=== PATIENT | female | born 1955 | race Caucasian/White ===

== ENCOUNTER → 2016-11-12 | Outpatient (CLI) | payer MEDICARE ==
[2016-11-12 10:39] LABS: HEMATOCRIT 34.2 % (36.0-47.0); HEMOGLOBIN 11.7 g/dL (12.0-15.5); HGB HCT DIFFERENCE 0.9; MEAN CORPUSCULAR HGB CONC 34.3 g/dL (32.0-36.0); MEAN CORPUSCULAR VOLUME 85 fl (80-97); RED BLOOD COUNT 4.04 10^6/uL (3.72-5.28); RED CELL DISTRIBUTION WIDTH 13.2 % (11.5-14.0)
[2016-11-12 11:09] LABS: ALBUMIN 3.9 g/dL (3.5-5.0); BILIRUBIN,TOTAL 0.5 mg/dL (0.2-1.3); TOTAL PROTEIN 7.2 g/dL (6.3-8.2)
== END ==
LOC: OD 09:53
PROVIDERS: ATTEND Physician Assistant Surgical
DX: K50.90 Crohn's disease, unspecified, without complications (principal); Z79.899 Other long term (current) drug therapy
CPT/HCPCS: 36415; 80076; 85027; 86140

== ENCOUNTER → 2016-11-24 | Outpatient (CLI) | payer MEDICARE, OTHER | LOC: RAD 13:13 | DX: G20 Parkinson's disease (principal) | CPT/HCPCS: 70551 ==

== ENCOUNTER → 2016-11-26 | Outpatient (CLI) | payer MEDICARE | LOC: WI 11:26 | PROVIDERS: ATTEND Internal Medicine Gastroenterology | DX: Z78.0 Asymptomatic menopausal state (principal) | CPT/HCPCS: 77080 ==

== ENCOUNTER → 2017-02-01 | Outpatient (CLI) | payer MEDICARE ==
[2017-02-01 14:11] LABS: FOLATE 9.4 ng/mL (>2.76)
== END ==
LOC: OD 12:06
PROVIDERS: ATTEND Specialist
DX: R25.1 Tremor, unspecified (principal)
CPT/HCPCS: 36415; 82607; 82746

== ENCOUNTER 2017-03-14 18:16 | Inpatient (IN) | payer MEDICARE ==
[2017-03-14] MEDS ORDERED: MAGNESIUM SULFATE/D5W 100 ML IV PRN (19:16)
[2017-03-14] MEDS ORDERED: METHYLPREDNISOLONE INJ 125 MG/2 ML SDV IV ONE (19:17)
[2017-03-14] MEDS ORDERED: IPRATROPIUM/ALBUTEROL 0.5-2.5 MG/3 ML AMPUL NEB ONE (19:17)
--- NOTE | 2017-03-14 19:19 | ER Document Report ---
ED Respiratory Problem - General Chief Complaint: Shortness Of Breath Stated Complaint: DIFFICULTY BREATHING Time Seen by Provider: 03/14/17 19:09 Notes: Patient is a 61-year-old female comes emergency department by EMS by referral from urgent care for chief complaint of difficulty breathing. Patient was given to reading treatments and route. Patient states she has been worsening for the past 2-3 days, reports persistent congested cough, wheezing, shortness of breath. She denies vomiting, fever, specific chest pain. She states she stopped smoking 15 years ago. No COPD or asthma diagnosis although this is the third time this year she has had these symptoms. She has an albuterol inhaler at home. Past medical history otherwise includes Crohn's, hypothyroidism, GERD , fibromyalgia. TRAVEL OUTSIDE OF THE [place] IN LAST 30 DAYS: No - Related Data Allergies/Adverse Reactions: morphine [Morphine] Allergy (Severe, Verified 03/15/17 00:49) N&V, itching, resp distress ciprofloxacin [From Cipro] Allergy (Intermediate, Verified 12/13/15 14:07) N&V,rash ciprofloxacin HCl [From Cipro] Allergy (Intermediate, Verified 12/13/15 14:07) N&V, rash oxycodone [From Percocet] Adverse Reaction (Verified 03/15/17 00:49) GI distress Past Medical History - General Information source: Patient - Social History Smoking Status: Former Smoker Frequency of alcohol use: None Drug Abuse: None Lives with: Family Family History: Reviewed & Not Pertinent Patient has suicidal ideation: No Patient has homicidal ideation: No - Past Medical History Cardiac Medical History: Reports: Hx Hypercholesterolemia - Triglycerides Denies: Hx Pulmonary Embolism Pulmonary Medical History: Reports: Hx Asthma, Hx Bronchitis, Hx Pneumonia Denies: Hx COPD, Hx Respiratory Failure, Hx Sleep Apnea, Hx Tuberculosis Endocrine Medical History: Reports: Hx Hypothyroidism. Denies: Hx Graves' Disease, Hx Hyperthyroidism Renal/ Medical History: Reports: Hx Ovarian Cysts - 2006, [facility]. Denies: Hx End Stage Renal Disease, Hx Kidney Stones, Hx Peritoneal Dialysis, Hx Pelvic Inflammatory Disease Malignancy Medical History: Reports: Hx Cervical Cancer - 1992, [facility]. Denies: Hx Breast Cancer, Hx Leukemia, Hx Lung Cancer, Hx Ovarian Cancer GI Medical History: Reports: Hx Crohn's Disease, Hx Gastroesophageal Reflux Disease. Denies: Hx Hiatal Hernia, Hx Irritable Bowel, Hx Liver Failure, Hx Ulcer Musculoskeltal Medical History: Reports Hx Arthritis, Reports Hx Fibromyalgia, Denies Hx Muscular Dystrophy Psychiatric Medical History: Reports: Hx Anxiety, Hx Depression Denies: Hx Bipolar Disorder, Hx Post Traumatic Stress Disorder, Hx Schizophrenia Traumatic Medical History: Reports: Hx Fractures Infectious Medical History: Denies: Hx HIV Past Surgical History: Reports: Hx Gynecologic Surgery - cervical, Hx Hysterectomy, Hx Orthopedic Surgery - bilateral tkr, spinal, Hx Tonsillectomy - at age 13 yrs old, Hx Tubal Ligation. Denies: Hx Appendectomy, Hx Bowel Surgery , Hx Section, Hx Cholecystectomy, Hx Colostomy, Hx Coronary Artery Bypass Graft, Hx Gastric Bypass Surgery, Hx Herniorrhaphy, Hx Mastectomy, Hx Pacemaker - Immunizations Hx Diphtheria, Pertussis, Tetanus Vaccination: Yes Review of Systems - Review of Systems Constitutional: No symptoms reported EENT: No symptoms reported Cardiovascular: No symptoms reported Respiratory: See HPI Gastrointestinal: No symptoms reported Genitourinary: No symptoms reported Female Genitourinary: No symptoms reported Musculoskeletal: No symptoms reported Skin: No symptoms reported Hematologic/Lymphatic: No symptoms reported Neurological/Psychological: No symptoms reported Physical Exam - Vital signs Vitals: Temp Pulse Resp BP Pulse Ox 98.1 F 92 16 122/71 98 03/14/17 18:52 03/14/17 18:52 03/14/17 18:52 03/14/17 18:52 03/14/17 18:52 Interpretation: Normal - General General appearance: Anxious In distress: Mild - patient with tachypnea on exam, but does not appear to be in pain - HEENT Head: Normocephalic, Atraumatic Eyes: Normal Pupils: PERRL - Respiratory Respiratory status: Respiratory distress - mild, Labored, Tachypnea Breath sounds: Decreased air movement, Wheezing - Cardiovascular Rhythm: Regular. No: Tachycardia Heart sounds: Normal auscultation, S1 appreciated, S2 appreciated Murmur: No - Abdominal Inspection: Normal Distension: No distension Bowel sounds: Normal Tenderness: Nontender. No: Tender, Guarding Organomegaly: No organomegaly - Back Back: Normal, Nontender. No: Vertebra tenderness - Extremities General upper extremity: Normal inspection, Nontender, Normal color, Normal ROM , Normal temperature General lower extremity: Normal inspection, Nontender, Normal color, Normal ROM , Normal temperature, Normal weight bearing. No: Cl[place]'s sign - Neurological Neuro grossly intact: Yes Cognition: Normal Orientation: AAOx4 [place] Coma Scale Eye Opening: Spontaneous [place] Coma Scale Verbal: Oriented [place] Coma Scale Motor: Obeys Commands Chaya Coma Scale Total: 15 Speech: Normal Motor strength normal: LUE, RUE, LLE, RLE Sensory: Normal - Psychological Associated symptoms: Normal affect, Normal mood - Skin Skin Temperature: Warm Skin Moisture: Dry Skin Color: Normal Course - Re-evaluation Re-evalutation: On initial exam patient with mild respiratory distress, labored breathing, tachypnea, decreased breath sounds with wheezing throughout. Plan unremarkable, chemistry, CBC, workup generally unremarkable. Consistent with COPD exacerbation and undiagnosed patient, upper respiratory infection. After breathing treatments, patient has received 3 in total, magnesium, Solu- Medrol, IV fluids patient significantly improved but still has wheezing and a mild tachypnea. Still has very slightly labored breathing. She is tolerating nasal cannula well and oxygenating well on nasal cannula. Patient does not appear to be ready to go home, she states she is nervous to even walk to attempt to test for going home. Discussed with Dr. Grimaldo. Discussed with Dr. Stevens, patient will be admitted to the hospital. - Vital Signs Vital signs: Temp Pulse Resp BP Pulse Ox 97.5 F 93 18 146/68 H 98 03/15/17 03:55 03/15/17 03:55 03/15/17 03:55 03/15/17 03:55 03/15/17 03:55 - Laboratory Result Diagrams: 03/14/17 19:27 03/14/17 19:27 Laboratory results interpreted by me: 03/14/17 03/14/17 03/14/17 19:27 19:27 19:27 Hgb 11.8 L Hct 35.5 L Eosinophils % 16.8 H Absolute Eosinophils 1.6 H Magnesium 2.4 H TSH 0.03 L Discharge - Discharge Clinical Impression: Wheezing, Shortness of breath, COPD exacerbation Condition: Stable Disposition: ADMITTED OBSERVATION Admitting Provider: Hospitalist Unit Admitted: Telemetry
[2017-03-14 19:41] LABS: ABSOLUTE EOSINOPHILS # (AUTO) 1.6 10^3/uL (0.0-0.6); ABSOLUTE LYMPHOCYTES (AUTO) 2.5 10^3/uL (0.5-4.7); ABSOLUTE MONOCYTES (AUTO) 0.6 10^3/uL (0.1-1.4); ABSOLUTE NEUT (AUTO) 4.9 10^3/uL (1.7-8.2); BASOPHILS % (AUTO) 0.3 % (0-2); EOSINOPHILS % (AUTO) 16.8 % (0-6); HEMATOCRIT 35.5 % (36.0-47.0); HEMOGLOBIN 11.8 g/dL (12.0-15.5); HGB HCT DIFFERENCE -0.1; LYMPHOCYTES % (AUTO) 25.6 % (13-45); MEAN CORPUSCULAR HEMOGLOBIN 28.4 pg (27.0-33.4); MEAN CORPUSCULAR HGB CONC 33.2 g/dL (32.0-36.0); MEAN CORPUSCULAR VOLUME 86 fl (80-97); MONOCYTES % (AUTO) 6.5 % (3-13); RED BLOOD COUNT 4.15 10^6/uL (3.72-5.28); RED CELL DISTRIBUTION WIDTH 13.7 % (11.5-14.0); SEGMENTED NEUTROPHILS % (AUTO) 50.8 % (42-78); WHITE BLOOD COUNT 9.6 10^3/uL (4.0-10.5)
[2017-03-14 19:55] LABS: ALANINE AMINOTRANSFERASE 18 U/L (9-52); ALKALINE PHOSPHATASE 81 U/L (38-126); ANION GAP 12 (5-19); ASPARTATE AMINO TRANSFERASE 19 U/L (14-36); BILIRUBIN,DIRECT 0.3 mg/dL (0.0-0.4); BILIRUBIN,TOTAL 0.6 mg/dL (0.2-1.3); BLOOD UREA NITROGEN 13 mg/dL (7-20); CARBON DIOXIDE 24 mmol/L (22-30); CHLORIDE 107 mmol/L (98-107); CREATINE KINASE 103 U/L (30-135); CREATININE RESULT 0.66 mg/dL (0.52-1.25); GLUCOSE 102 mg/dL (75-110); POTASSIUM 3.9 mmol/L (3.6-5.0); SODIUM 143.2 mmol/L (137-145); TOTAL PROTEIN 7.7 g/dL (6.3-8.2)
[2017-03-14 20:07] LABS: CREATINE KINASE MB 0.78 ng/mL (<4.55)
[2017-03-14 20:08] LABS: TROPONIN I < 0.012 ng/mL
[2017-03-14] MEDS ORDERED: NORMAL SALINE 1000 ML 1,000 ML IV ONE (20:49)
--- NOTE | 2017-03-14 20:54 | RADIOLOGY REPORT (SQ) ---
EXAM DESCRIPTION: CHEST SINGLE VIEW COMPLETED DATE/TIME: 03/14/2017 8:03 pm REASON FOR STUDY: shortness of breath COMPARISON: 12/13/2015 EXAM PARAMETERS: NUMBER OF VIEWS: One view. TECHNIQUE: Single frontal radiographic view of the chest acquired. RADIATION DOSE: NA LIMITATIONS: None. FINDINGS: LUNGS AND PLEURA: No opacities, masses or pneumothorax. No pleural effusion. MEDIASTINUM AND HILAR STRUCTURES: No masses. Contour normal. HEART AND VASCULAR STRUCTURES: Heart normal in size. Normal vasculature. BONES: No acute findings. HARDWARE: EKG leads overlie the chest. OTHER: No other significant finding. IMPRESSION: NO ACUTE RADIOGRAPHIC FINDING IN THE CHEST. TECHNICAL DOCUMENTATION: JOB ID: [id number]
[2017-03-14 22:13] LABS: VENOUS BLOOD BASE EXCESS -1.9 mmol/L; VENOUS BLOOD HCO3 22.9 mmol/L (20-32); VENOUS BLOOD PCO2 39.5 mmHg (35-63); VENOUS BLOOD PH 7.38 (7.30-7.42)
[2017-03-15] MEDS ORDERED: GUAIFENESIN SYRP 200 MG/10 ML UDC PO PRN (00:33)
[2017-03-15 00:35] LABS: ADD ON TESTING BLD IN LAB ACKNOWLEDGE
[2017-03-15] MEDS ORDERED: PROMETHAZINE HCL 25 MG TABLET PO PRN (00:37)
--- NOTE | 2017-03-15 00:59 | PDOC H&P ---
History of Present Illness Admission Date/PCP: 03/14/17 22:51 COLLEEN HERNANDEZ PA-C Patient complains of: difficulty breathing History of Present Illness: EKEGAN FELICIANO is a 61 year old female, former smoker, with no tobacco use 15 years, and with no specific pulmonary diagnosis, including asthma, COPD , emphysema, or sleep apnea, but with pulmonology consult to be scheduled in the near future who presents to the emergency room for evaluation of a 2-3 day history of progressive respiratory distress, in the form of occasional congested cough, wheezing, and just generalized shortness of breath, in particular with much of any exertion. Patient has been discussed with emergency room nurse practitioner who evaluated the patient. She has had no fever or chills, nausea vomiting, diarrhea or dysuria. Took a 10 day course of amoxicillin 3 weeks ago for respiratory problems. Intermittent right sided pressure-like chest discomfort over the last several days, increasing with deep breathing and certain movements. Discomfort is worse when she is most short of breath. No underlying cardiac disease, including hypertension, congestive heart failure, myocardial infarction, pulmonary embolus, or DVT. No chest discomfort at present. Has had neither flu or pneumonia vaccinations. still smokes, but only 3-4 cigarettes a day. Daughter, who recently got out of senior living, apparently smokes quite a bit. Laboratory results are listed in [employer] and are reviewed. X-ray summary results are listed below, with full report(s) reviewed. . EKG reviewed. Social history/personal habits: . 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 Allergies/adverse reactions are listed in [employer] and are reviewed. Home medications initially autopopulated into [employer] may not accurately reflect patient's true medications, dosages, and/or frequencies. computer systems technician to reconcile medications. Unfortunately, patient not certain of all medications/dosages/frequencies. REVIEW OF SYSTEMS: Constitutional: No fever or chills. Eyes: Wears glasses ENT: No swallowing problems or complaints. Partial hearing loss. Pulmonary: See history and present illness. Cardiovascular: See history and present illness. Gastrointestinal: No current complaints, including nausea or vomiting. Skin: No current complaints, including rashes. Hematologic: Denies easy bruising. Neurologic: See history and present illness. From her description, likely has sciatica involving her left lower extremity. Musculoskeletal: Chronic back discomfort. Psychiatric: Anxiety and depression; denies suicidal or homicidal ideation Endocrine: No current complaints, including polyuria. Genitourinary: No current complaints, including dysuria. PHYSICAL EXAMINATION: 5 feet 3 inches tall. 88.5 kg. BMI 34.5 kg/m. Blood pressure 130/73. Pulse 97 and regular. 95% saturation on room air. Respirations are 26, with patient making occasional minor use of her accessory respiratory muscles. Temperature 98.1. Slightly obese otherwise well-developed female who appears a bit older than her stated age. Appears not to feel very well. Somewhat anxious, although no gil agitation. Pleasant awake alert and cooperative. is present at her side; patient approves. Female emergency room nurse Rosa is present. Skin is warm and dry. No grossly obvious evidence of rash in areas of skin examined. No subcutaneous nodules palpated. ENT: Hearing grossly normal to normal conversation. Tongue midline on protrusion pink and slightly tacky. Eyes: No scleral icterus. Pupils equal and reactive to light at 4 mm. [place] conjunctivae. Neck is supple and nontender to gentle active range of motion and palpation. Midline trachea. No palpable thyroid nodule mass enlargement or tenderness. Lymphatic: No palpable cervical or clavicular nodes. Neck and lymphatic exams limited by patient body habitus. Psychiatric: Reasonable insight into acute and chronic medical issues. Oriented to time location and why here. Lungs: Auscultation reveals clear and equal breath sounds bilaterally. Occasional brief minor use of accessory respiratory muscles. Cardiovascular: Heart regular rate and rhythm, without gallop murmur or rub. No carotid or abdominal aortic bruits. No ankle or pedal edema. Faintly palpable dorsalis pedis pulses. Abdomen:soft somewhat obese nontender with positive bowel sounds. Unable to adequately evaluate abdomen for masses or organomegaly due to body habitus. Extremities: Feet are warm and dry. No calf tenderness to compression. No grossly obvious visual evidence of calf swelling. Gentle manipulation of lower extremities fails to reveal any obvious evidence of injury or instability to knees hips or ankles. Neurologic: Moves upper extremities grossly normally. Patellar reflexes absent. Absent Babinski. Light touch is intact at feet. Dorsiflexion and plantarflexion of feet 5 / 5 and symmetric. Past Medical History Cardiac Medical History: Reports: Hyperlipidema Denies: Congestive Heart Failure, DVT, Myocardial Infarction, Hypertension, Pulmonary Embolism Pulmonary Medical History: Reports: Bronchitis, Pneumonia Denies: Asthma, Chronic Obstructive Pulmonary Disease (COPD), Respiratory Failure, Sleep Apnea, Tuberculosis EENT Medical History: Reports: Eyes - Glasses, Ears - Partial hearing loss Denies: Throat Neurological Medical History: Reports: Other - Probable sciatica involving her left lower extremity Denies: Hemorrhagic CVA, Ischemic CVA, Seizures Endocrine Medical History: Reports: Hypothyroidism Denies: Diabetes Mellitus Type 1, Diabetes Mellitus Type 2, Hyperthyroidism Renal/ Medical History: Reports: Other - Probable prolapsed bladder Malignancy Medical History: Reports: Cervical Cancer - 1992 Denies: Breast Cancer, Leukemia, Lung Cancer, Ovarian Cancer GI Medical History: Reports: Crohn's Disease, Gastroesophageal Reflux Disease Denies: Cirrhosis, Hepatitis, Hiatal Hernia, Peptic Ulcer Disease Musculoskeltal Medical History: Reports: Arthritis Skin Medical History: Reports: None Psychiatric Medical History: Reports: Depression, General Anxiety Disorder Denies: Alcohol Dependency, Substance Abuse, Tobacco Dependency Hematology: Reports: Anemia - iron deficiency Denies: Hemophilia, Sickle Cell Disease Infectious Medical History: Denies: Clostridium Difficile, Hepatitis B, Hepatitis C, Methicillin- Resistant Staph Aureus Past Surgical History Past Surgical History: Reports: Hysterectomy, Orthopedic Surgery - bilateral tkr , spinal, Tonsillectomy - at age 13 yrs old, Tubal Ligation Social History Information Source: Patient, Emergency Med Personnel, [facility] Records Lives with: Spouse/Significant other Smoking Status: Former Smoker Frequency of Alcohol Use: None Hx Recreational Drug Use: No Drugs: None Hx Prescription Drug Abuse: No - Advance Directive Resuscitation Status: Full Code Surrogate healthcare decision maker:: Family History Family History: Reviewed & Not Pertinent Parental Family History Reviewed: Yes - Father of cerebral hemorrhage. Mother alive with dementia Children Family History Reviewed: Yes - Son with COPD Sibling(s) Family History Reviewed.: Yes Medication/Allergy Home Medications: Alprazolam [Xanax 0.25 mg Tablet] 0.25 mg PO Q8HP PRN 03/15/17 Fluticasone Propionate [Flovent Diskus 100 mcg] 1 puff IH BID 03/15/17 Gabapentin [Neurontin] 800 mg PO Q6 03/15/17 Levothyroxine Sodium [Synthroid 0.025 mg Tablet] 0.025 mg PO DAILY 03/15/17 Omeprazole 40 mg PO DAILY 03/15/17 Oxybutynin Chloride [Ditropan 5 mg Tablet] 5 mg PO Q8 03/15/17 Sertraline HCl [Zoloft 50 mg Tablet] 50 mg PO DAILY 03/15/17 Simvastatin [Zocor 20 mg Tablet] 20 mg PO QPM 03/15/17 Albuterol Sulfate [Proair HFA] 1 - 2 puff IH Q4 PRN #1 inhaler 03/18/17 Azithromycin [Zithromax 250 mg Tablet] 250 mg PO QHS #5 tablet 03/18/17 Guaifenesin [Mucinex Sr 600 mg Tablet.] 1,200 mg PO Q12 tablet.sa 03/18/17 Allergies/Adverse Reactions: morphine [Morphine] Allergy (Severe, Verified 03/15/17 00:49) N&V, itching, resp distress ciprofloxacin [From Cipro] Allergy (Intermediate, Verified 12/13/15 14:07) N&V,rash oxycodone [From Percocet] Adverse Reaction (Verified 03/15/17 00:49) GI distress Physical Exam Vital Signs: Temp Pulse Resp BP Pulse Ox 98.1 F 97 13 130/73 H 96 03/14/17 18:52 03/15/17 00:34 03/14/17 23:06 03/14/17 23:06 03/14/17 23:06 Results Impressions: Chest X-Ray 03/14/17 19:15 IMPRESSION: NO ACUTE RADIOGRAPHIC FINDING IN THE CHEST. Assessment & Plan - Diagnosis (1) Respiratory distress Is this a current diagnosis for this admission?: YesPlan: Although no formal diagnosis of COPD, suspect this is exacerbation of same. Will treat as for same. Incentive spirometry twice a day. Scheduled DuoNeb's. As needed albuterol nebs. Prednisone. Prevacid for gastritis prophylaxis. Antibiotics will consist of Zithromax and Rocephin. I strongly encouraged patient to notify staff should patient feel that breathing is worsening. Patient is a full code. I have strongly encouraged patient not to get out of bed without notifying staff , to avoid a fall with injury. Knee high SCDs for DVT prophylaxis, along with subcutaneous Lovenox. Impression and plans were discussed with patient and , both of whom concur. Time spent in evaluation and management of patient: 66 minutes. (2) Immunosuppressed status Is this a current diagnosis for this admission?: YesPlan: We will hold Crohn's medication for now. (3) HLD (hyperlipidemia) Qualifiers: Hyperlipidemia type: unspecified Qualified Code(s): E78.5 - Hyperlipidemia, unspecified Is this a current diagnosis for this admission?: YesPlan: Resume home medications as appropriate once these have been determined and reviewed. (4) DVT prophylaxis Is this a current diagnosis for this admission?: Yes (5) Hypothyroid Qualifiers: Hypothyroidism type: unspecified Qualified Code(s): E03.9 - Hypothyroidism, unspecified Is this a current diagnosis for this admission?: YesPlan: TSH pending. Resume home medications as appropriate once these have been determined and reviewed. (6) Cough Is this a current diagnosis for this admission?: Yes (7) Chest pain Qualifiers: Chest pain type: other chest pain Qualified Code(s): R07.89 - Other chest pain; R07.8 - Other chest pain Is this a current diagnosis for this admission?: YesPlan: Suspect this is simply secondary to her underlying respiratory issues, but will proceed with chest pain protocol. Serial troponin . Repeat EKG. lipid panel. (8) Wheezing Is this a current diagnosis for this admission?: Yes (9) Shortness of breath Is this a current diagnosis for this admission?: Yes
[2017-03-15 01:13] LABS: MAGNESIUM 2.4 mg/dL (1.6-2.3)
[2017-03-15] MEDS ORDERED: AZITHROMYCIN 250 MG TABLET PO ONE (01:30)
[2017-03-15] MEDS ORDERED: CEFTRIAXONE 1 GM/D5W RTU 1 GM/50 ML RTUPB IV ONE (02:00)
[2017-03-15] MEDS ORDERED: CEFAZOLIN 1 GM/D5W RTU 1 GM/50 ML RTUPB IV ONE (03:13)
[2017-03-15 03:17] LABS: APPEARANCE,URINE CLEAR; BILIRUBIN,URINE NEGATIVE (NEGATIVE); GLUCOSE, URINE 150 mg/dL (NEGATIVE); KETONES,URINE NEGATIVE (NEGATIVE); LEUKOCYTE ESTERASE,URINE NEGATIVE (NEGATIVE); NITRITE,URINE NEGATIVE (NEGATIVE); PROTEIN,URINE NEGATIVE (NEGATIVE); URINE SPECIFIC GRAVITY 1.016; UROBILINOGEN,URINE NEGATIVE mg/dL (<2.0)
[2017-03-15] MEDS: ACETAMINOPHEN 325 MG TABLET PO PRN ×2 (03:23→20:33)
[2017-03-15] MEDS: LANSOPRAZOLE 30 MG TAB.RAP.DR PO SCH (06:05)
[2017-03-15] MEDS: ALBUTEROL SULFATE 0.083% NEB 2.5 MG/3 ML AMPUL NEB PRN ×2 (06:26→18:27)
[2017-03-15 08:04] LABS: CHOLESTEROL 189.92 mg/dL (0-200); Direct HDL 47 mg/dL (>40); TRIGLYCERIDES 86 mg/dL (<150)
[2017-03-15 08:15] LABS: DIRECT LDL 120 mg/dL (<100)
[2017-03-15] MEDS: IPRATROPIUM/ALBUTEROL 0.5-2.5 MG/3 ML AMPUL NEB SCH ×3 (09:38→19:53)
[2017-03-15] MEDS: ENOXAPARIN SODIUM INJ 40 MG/0.4 ML DISP.SYRIN SUBCUT SCH (09:57)
[2017-03-15] MEDS: CEFTRIAXONE 1 GM/D5W RTU 1 GM/50 ML RTUPB IV SCH (09:57)
[2017-03-15] MEDS: PREDNISONE 20 MG TABLET PO SCH (09:57)
--- NOTE | 2017-03-15 10:18 | EKG REPORT ---
SEVERITY:- NORMAL ECG - SINUS RHYTHM : Confirmed by: Darryl Chanel MD 15-Mar-2017 10:18:03
--- NOTE | 2017-03-15 10:18 | EKG REPORT ---
SEVERITY:- NORMAL ECG - SINUS RHYTHM : Confirmed by: Darryl Chanel MD 15-Mar-2017 10:17:54
[2017-03-15] MEDS ORDERED: ALPRAZOLAM 0.25 MG TABLET PO PRN (13:05)
--- NOTE | 2017-03-15 13:14 | PDOC PROGRESS REPORT ---
Subjective Progress Note for:: 03/15/17 Subjective:: Patient is seen on morning rounds. Laura is resting comfortably in bed at the present time. She is off oxygen presently. She states her breathing feels improved since she came in but her chest is still feeling "tight.." and lungs are ".. burning" She denies any dyspnea or chest pain. She denies any nausea, vomiting or abdominal pain Physical Exam Vital Signs: Temp Pulse Resp BP Pulse Ox 97.8 F 88 16 145/78 H 94 03/15/17 07:34 03/15/17 09:38 03/15/17 09:38 03/15/17 07:34 03/15/17 09:38 Intake & Output 03/14/17 03/15/17 03/16/17 06:59 06:59 06:59 Intake Total 250 Output Total 200 Balance 50 Weight 82.9 kg General appearance: PRESENT: no acute distress, obese, well-developed, well- nourished Head exam: PRESENT: atraumatic, normocephalic Eye exam: PRESENT: conjunctiva pink, EOMI, PERRLA. ABSENT: scleral icterus Ear exam: PRESENT: normal external ear exam Mouth exam: PRESENT: moist, tongue midline Neck exam: ABSENT: carotid bruit, JVD, lymphadenopathy, thyromegaly Respiratory exam: PRESENT: decreased breath sounds, rhonchi - bilaterally, symmetrical, unlabored. ABSENT: rales, wheezes Cardiovascular exam: PRESENT: RRR. ABSENT: diastolic murmur, rubs, systolic murmur Pulses: PRESENT: normal dorsalis pedis pul Vascular exam: PRESENT: normal capillary refill GI/Abdominal exam: PRESENT: ascites Rectal exam: PRESENT: deferred Extremities exam: PRESENT: calf tenderness Neurological exam: PRESENT: alert, awake, oriented to person, oriented to place , oriented to time, oriented to situation, CN II-XII grossly intact. ABSENT: motor sensory deficit Psychiatric exam: PRESENT: appropriate affect, normal mood. ABSENT: homicidal ideation, suicidal ideation Skin exam: PRESENT: dry, intact, warm. ABSENT: cyanosis, rash Results Laboratory Results: 03/15/17 03/15/17 02:55 07:38 Triglycerides 86 Cholesterol 189.92 LDL Cholesterol Direct 120 H VLDL Cholesterol 17.0 HDL Cholesterol 47 Urine Color YELLOW Urine Appearance CLEAR Urine pH 5.0 Ur Specific [place] 1.016 Urine Protein NEGATIVE Urine Glucose (UA) 150 H Urine Ketones NEGATIVE Urine Blood NEGATIVE Urine Nitrite NEGATIVE Ur Leukocyte Esterase NEGATIVE Urine WBC (Auto) 1 Urine RBC (Auto) 0 03/15/17 03/15/17 01:24 07:38 Troponin I < 0.012 < 0.012 Impressions: Chest X-Ray 03/14/17 19:15 IMPRESSION: NO ACUTE RADIOGRAPHIC FINDING IN THE CHEST. Assessment & Plan - Diagnosis (1) COPD exacerbation Is this a current diagnosis for this admission?: YesPlan: Continue nebulizers, antibiotics and steroids (2) Cough Is this a current diagnosis for this admission?: YesPlan: Improving with current treatment (3) DVT prophylaxis Is this a current diagnosis for this admission?: YesPlan: Lovenox (4) SOB (shortness of breath) Is this a current diagnosis for this admission?: Yes (5) Wheezing Is this a current diagnosis for this admission?: YesPlan: Resolved with current treatment (6) Hypothyroidism Qualifiers: Hypothyroidism type: acquired Qualified Code(s): E03.9 - Hypothyroidism, unspecified Is this a current diagnosis for this admission?: YesPlan: Patient is now hyperthyroid. She is been on cytomel and levothyroxine will hold both and recheck - Time Time Spent with patient: 25-34 minutes Critical Time spent with patient: 15-24 minutes Medications reviewed and adjusted accordingly: Yes Anticipated discharge: Home with Homehealth
[2017-03-15] MEDS: OXYBUTYNIN CHLORIDE 5 MG TABLET PO SCH ×2 (15:19→21:47)
[2017-03-15] MEDS: CARBIDOPA/LEVODOPA 25-100 MG TABLET PO SCH (15:19)
[2017-03-15] MEDS: SIMVASTATIN 10 MG TABLET PO SCH (17:15)
[2017-03-15] MEDS: GABAPENTIN 400 MG CAPSULE PO SCH ×2 (17:16→23:12)
[2017-03-15] MEDS: AZITHROMYCIN 250 MG TABLET PO SCH (21:47)
[2017-03-16] MEDS: LANSOPRAZOLE 30 MG TAB.RAP.DR PO SCH ×2 (05:12→10:40)
[2017-03-16] MEDS: OXYBUTYNIN CHLORIDE 5 MG TABLET PO SCH ×3 (05:12→22:40)
[2017-03-16] MEDS: GABAPENTIN 400 MG CAPSULE PO SCH ×3 (05:12→18:45)
[2017-03-16] MEDS: ALBUTEROL SULFATE 0.083% NEB 2.5 MG/3 ML AMPUL NEB PRN ×2 (05:29→10:54)
[2017-03-16 07:07] LABS: FREE T3 2.69 pg/mL (2.77-5.27)
[2017-03-16 07:20] LABS: THYROID STIMULATING HORMONE 0.05 uIU/mL (0.47-4.68)
[2017-03-16] MEDS: CARBIDOPA/LEVODOPA 25-100 MG TABLET PO SCH ×3 (08:14→16:56)
[2017-03-16] MEDS: IPRATROPIUM/ALBUTEROL 0.5-2.5 MG/3 ML AMPUL NEB SCH ×3 (08:55→20:24)
[2017-03-16] MEDS ORDERED: ACETYLCYSTEINE 20% SOLN 800 MG/4 ML VIAL.NEB NEB PRN (10:30)
[2017-03-16] MEDS: ENOXAPARIN SODIUM INJ 40 MG/0.4 ML DISP.SYRIN SUBCUT SCH (10:35)
[2017-03-16] MEDS: GUAIFENESIN 600 MG TABLET.SA PO SCH ×2 (10:38→22:40)
[2017-03-16] MEDS: PREDNISONE 20 MG TABLET PO SCH (10:39)
[2017-03-16] MEDS: SERTRALINE HCL 50 MG TABLET PO SCH (10:40)
[2017-03-16] MEDS: ALPRAZOLAM 0.5 MG TABLET PO SCH ×2 (10:40→22:39)
[2017-03-16] MEDS: CEFTRIAXONE 1 GM/D5W RTU 1 GM/50 ML RTUPB IV SCH (10:41)
--- NOTE | 2017-03-16 11:27 | PDOC PROGRESS REPORT ---
Subjective Progress Note for:: 03/16/17 Subjective:: Patient is seen on morning rounds. Laura is resting comfortably in bed at the present time. She is off oxygen presently. She states her breathing feels improved since she came in but her chest is still feeling "tight.." and lungs are ".. burning" She denies any dyspnea or chest pain. She denies any nausea, vomiting or abdominal pain Physical Exam Vital Signs: Temp Pulse Resp BP Pulse Ox 98.1 F 62 16 150/71 H 96 03/16/17 07:31 03/16/17 10:53 03/16/17 10:53 03/16/17 07:31 03/16/17 10:53 Intake & Output 03/15/17 03/16/17 03/17/17 06:59 06:59 06:59 Intake Total 250 1076 Output Total 200 1000 Balance 50 76 Weight 82.9 kg 83.5 kg General appearance: PRESENT: no acute distress, obese, well-developed, well- nourished Head exam: PRESENT: atraumatic, normocephalic Eye exam: PRESENT: conjunctiva pink, EOMI, PERRLA. ABSENT: scleral icterus Ear exam: PRESENT: normal external ear exam Mouth exam: PRESENT: moist, tongue midline Neck exam: ABSENT: carotid bruit, JVD, lymphadenopathy, thyromegaly Respiratory exam: PRESENT: rhonchi, symmetrical, unlabored - bilaterally. ABSENT: rales, wheezes Cardiovascular exam: PRESENT: RRR. ABSENT: diastolic murmur, rubs, systolic murmur Pulses: PRESENT: normal dorsalis pedis pul Vascular exam: PRESENT: normal capillary refill. ABSENT: pallor, other GI/Abdominal exam: PRESENT: normal bowel sounds, soft. ABSENT: distended, guarding, mass, organolmegaly, rebound, tenderness Rectal exam: PRESENT: deferred Extremities exam: PRESENT: full ROM. ABSENT: calf tenderness, clubbing, pedal edema Neurological exam: PRESENT: alert, awake, oriented to person, oriented to place , oriented to time, oriented to situation, CN II-XII grossly intact. ABSENT: motor sensory deficit Psychiatric exam: PRESENT: agitated Skin exam: PRESENT: dry, intact, warm. ABSENT: cyanosis, rash Results Laboratory Results: 03/16/17 04:56 TSH 0.05 L Free T4 0.48 L Free T3 pg/mL 2.69 L 03/15/17 03/15/17 01:24 07:38 Troponin I < 0.012 < 0.012 Impressions: Chest X-Ray 03/14/17 19:15 IMPRESSION: NO ACUTE RADIOGRAPHIC FINDING IN THE CHEST. Assessment & Plan - Diagnosis (1) COPD exacerbation Is this a current diagnosis for this admission?: YesPlan: Continue nebulizers, antibiotics and steroids. Will add mucomyst nebulizers and flutter valve to assist with mucous expectoration (2) Cough Is this a current diagnosis for this admission?: YesPlan: Improving with current treatment (3) Wheezing Is this a current diagnosis for this admission?: Yes (4) SOB (shortness of breath) Is this a current diagnosis for this admission?: YesPlan: As above in number 1. Improving (5) Hypothyroidism Qualifiers: Hypothyroidism type: acquired Qualified Code(s): E03.9 - Hypothyroidism, unspecified Is this a current diagnosis for this admission?: YesPlan: Patient is now hyperthyroid. She is been on cytomel and levothyroxine will hold both and recheck (6) DVT prophylaxis Is this a current diagnosis for this admission?: YesPlan: Lovenox - Time Time Spent with patient: 25-34 minutes Critical Time spent with patient: 15-24 minutes Medications reviewed and adjusted accordingly: Yes Anticipated discharge: Home Within: within 24 hours
[2017-03-16] MEDS: SIMVASTATIN 10 MG TABLET PO SCH (18:46)
[2017-03-16] MEDS: ACETYLCYSTEINE 20% SOLN 800 MG/4 ML VIAL.NEB NEB SCH (20:24)
[2017-03-16] MEDS: AZITHROMYCIN 250 MG TABLET PO SCH (22:40)
[2017-03-17] MEDS: GABAPENTIN 400 MG CAPSULE PO SCH ×5 (00:56→23:36)
[2017-03-17] MEDS: OXYBUTYNIN CHLORIDE 5 MG TABLET PO SCH ×3 (05:52→22:53)
[2017-03-17] MEDS: LANSOPRAZOLE 30 MG TAB.RAP.DR PO SCH ×2 (05:52→09:43)
[2017-03-17] MEDS: IPRATROPIUM/ALBUTEROL 0.5-2.5 MG/3 ML AMPUL NEB SCH ×3 (08:23→20:22)
[2017-03-17] MEDS: ACETYLCYSTEINE 20% SOLN 800 MG/4 ML VIAL.NEB NEB SCH ×2 (08:23→20:22)
[2017-03-17] MEDS: CARBIDOPA/LEVODOPA 25-100 MG TABLET PO SCH ×3 (08:49→15:24)
[2017-03-17] MEDS: CEFTRIAXONE 1 GM/D5W RTU 1 GM/50 ML RTUPB IV SCH (09:43)
[2017-03-17] MEDS: ALPRAZOLAM 0.5 MG TABLET PO SCH ×2 (09:43→22:53)
[2017-03-17] MEDS: GUAIFENESIN 600 MG TABLET.SA PO SCH ×2 (09:43→22:53)
[2017-03-17] MEDS: PREDNISONE 20 MG TABLET PO SCH (09:43)
[2017-03-17] MEDS: ENOXAPARIN SODIUM INJ 40 MG/0.4 ML DISP.SYRIN SUBCUT SCH (09:43)
[2017-03-17] MEDS: SERTRALINE HCL 50 MG TABLET PO SCH (09:43)
--- NOTE | 2017-03-17 11:11 | PDOC PROGRESS REPORT ---
Subjective Progress Note for:: 03/17/17 Subjective:: Patient is seen on morning rounds. She is resting comfortably in bed at the present time. She continues to have a congested cough She states her breathing feels improved since she came in but her chest is still feeling "tight.." and lungs are ".. burning" She denies any dyspnea at rest or chest pain. She denies any nausea, vomiting or abdominal pain. Remaining review of systems are negative Physical Exam Vital Signs: Temp Pulse Resp BP Pulse Ox 97.6 F 64 16 153/89 H 96 03/17/17 08:12 03/17/17 08:12 03/17/17 08:12 03/17/17 08:12 03/17/17 08:12 Intake & Output 03/16/17 03/17/17 03/18/17 06:59 06:59 06:59 Intake Total 746 Output Total 800 Balance -54 General appearance: PRESENT: no acute distress, obese, well-developed, well- nourished Head exam: PRESENT: atraumatic, normocephalic Eye exam: PRESENT: conjunctiva pink, EOMI, PERRLA. ABSENT: scleral icterus Ear exam: PRESENT: normal external ear exam Mouth exam: PRESENT: moist, tongue midline Neck exam: ABSENT: carotid bruit, JVD, lymphadenopathy, thyromegaly Respiratory exam: PRESENT: rhonchi, symmetrical, unlabored. ABSENT: rales, wheezes Cardiovascular exam: PRESENT: RRR. ABSENT: diastolic murmur, rubs, systolic murmur Pulses: PRESENT: normal dorsalis pedis pul Vascular exam: PRESENT: normal capillary refill GI/Abdominal exam: PRESENT: normal bowel sounds, soft. ABSENT: distended, guarding, mass, organolmegaly, rebound, tenderness Rectal exam: PRESENT: deferred Extremities exam: PRESENT: full ROM. ABSENT: calf tenderness, clubbing, pedal edema Musculoskeletal exam: PRESENT: ambulatory, full ROM, normal inspection Neurological exam: PRESENT: alert, awake, oriented to person, oriented to place , oriented to time, oriented to situation, CN II-XII grossly intact. ABSENT: motor sensory deficit Psychiatric exam: PRESENT: appropriate affect, normal mood. ABSENT: homicidal ideation, suicidal ideation Skin exam: PRESENT: dry, intact, warm. ABSENT: cyanosis, rash Results Impressions: Chest X-Ray 03/14/17 19:15 IMPRESSION: NO ACUTE RADIOGRAPHIC FINDING IN THE CHEST. Assessment & Plan - Diagnosis (1) COPD exacerbation Is this a current diagnosis for this admission?: YesPlan: Continue nebulizers, antibiotics and steroids. Will add mucomyst nebulizers and flutter valve to assist with mucous expectoration. She is saturating better off of oxygen today. Continues to be very congested with difficulty raising secretions (2) Cough Is this a current diagnosis for this admission?: YesPlan: Improving with current treatment (3) Wheezing Is this a current diagnosis for this admission?: YesPlan: Resolved with current treatment (4) SOB (shortness of breath) Is this a current diagnosis for this admission?: YesPlan: As above in number 1. Improving (5) Hypothyroidism Qualifiers: Hypothyroidism type: acquired Qualified Code(s): E03.9 - Hypothyroidism, unspecified Is this a current diagnosis for this admission?: YesPlan: Patient is now hyperthyroid. She is been on cytomel and levothyroxine will hold both and recheck (6) DVT prophylaxis Is this a current diagnosis for this admission?: YesPlan: Lovenox - Time Time Spent with patient: 25-34 minutes Critical Time spent with patient: 15-24 minutes Medications reviewed and adjusted accordingly: Yes Anticipated discharge: Home Within: within 24 hours
[2017-03-17] MEDS: SIMVASTATIN 10 MG TABLET PO SCH (17:25)
[2017-03-17] MEDS: AZITHROMYCIN 250 MG TABLET PO SCH (22:53)
[2017-03-17] MEDS: FLUTICASONE PROPIONATE HFA 110 MCG/PUFF 12 GM MDI IH SCH (22:53)
[2017-03-18] MEDS: LANSOPRAZOLE 30 MG TAB.RAP.DR PO SCH (05:56)
[2017-03-18] MEDS: GABAPENTIN 400 MG CAPSULE PO SCH ×2 (05:56→11:29)
[2017-03-18] MEDS: OXYBUTYNIN CHLORIDE 5 MG TABLET PO SCH (05:56)
[2017-03-18] MEDS: ACETYLCYSTEINE 20% SOLN 800 MG/4 ML VIAL.NEB NEB SCH (07:37)
[2017-03-18] MEDS: IPRATROPIUM/ALBUTEROL 0.5-2.5 MG/3 ML AMPUL NEB SCH (07:37)
[2017-03-18] MEDS: CARBIDOPA/LEVODOPA 25-100 MG TABLET PO SCH ×2 (07:48→11:29)
[2017-03-18] MEDS: GUAIFENESIN 600 MG TABLET.SA PO SCH (09:41)
[2017-03-18] MEDS: PREDNISONE 20 MG TABLET PO SCH (09:41)
[2017-03-18] MEDS: ALPRAZOLAM 0.5 MG TABLET PO SCH (09:42)
[2017-03-18] MEDS: SERTRALINE HCL 50 MG TABLET PO SCH (09:42)
[2017-03-18] MEDS: FLUTICASONE PROPIONATE HFA 110 MCG/PUFF 12 GM MDI IH SCH (09:43)
[2017-03-18] MEDS: ENOXAPARIN SODIUM INJ 40 MG/0.4 ML DISP.SYRIN SUBCUT SCH (09:44)
[2017-03-18 11:40] VITALS: BP 137/66
--- NOTE | 2017-03-18 14:33 | PDOC DISCHARGE SUMMARY ---
General - Admit/Disc Date/PCP Admission Date/Primary Care Provider: 03/16/17 14:48 COLLEEN HERNANDEZ PA-C Discharge Date: 03/18/17 - Discharge Diagnosis (1) COPD exacerbation Is this a current diagnosis for this admission?: YesSummary: Patient was with IV antibiotics, steroids and nebulizer treatments. She began to improve after the initial 48 hours. Her wheezing and dyspnea abated. Today they have resolved she is now on room air. Her oxygen saturation 96%. She continues to have productive cough however this is improving. We will continue 5 more days of oral antibiotics and steroid taper. (2) Cough Is this a current diagnosis for this admission?: YesSummary: Continue Mucinex and prednisone taper. (3) Wheezing Is this a current diagnosis for this admission?: Yes (4) SOB (shortness of breath) Is this a current diagnosis for this admission?: YesSummary: Resolved (5) Hypothyroidism Is this a current diagnosis for this admission?: YesSummary: We will restart patient's Levoxyl and hold Cytomel (6) DVT prophylaxis Is this a current diagnosis for this admission?: Yes - Additional Information Resuscitation Status: Full Code Discharge Activity: Activity As Tolerated, Balance Activity w/Rest Home Medications: Alprazolam [Xanax 0.25 mg Tablet] 0.25 mg PO Q8HP PRN 03/15/17 Carbidopa/Levodopa [Sinemet 25-100 mg Tablet] 1 tab PO AC 03/15/17 Fluticasone Propionate [Flovent Diskus 100 mcg] 1 puff IH BID 03/15/17 Gabapentin [Neurontin] 800 mg PO Q6 03/15/17 Levothyroxine Sodium [Synthroid 0.025 mg Tablet] 0.025 mg PO DAILY 03/15/17 Omeprazole 40 mg PO DAILY 03/15/17 Oxybutynin Chloride [Ditropan 5 mg Tablet] 5 mg PO Q8 03/15/17 Sertraline HCl [Zoloft 50 mg Tablet] 50 mg PO DAILY 03/15/17 Simvastatin [Zocor 20 mg Tablet] 20 mg PO QPM 03/15/17 Albuterol Sulfate [Proair HFA] 1 - 2 puff IH Q4 PRN #1 inhaler 03/18/17 Azithromycin [Zithromax 250 mg Tablet] 250 mg PO QHS #5 tablet 03/18/17 Guaifenesin [Mucinex Sr 600 mg Tablet.sa] 1,200 mg PO Q12 tablet.sa 03/18/17 History of Present Illness Patient complains of: Shortness of breath and cough History of Present Illness: KEEGAN FELICIANO is a 61 year old female, former smoker, with no tobacco use 15 years, and with no specific pulmonary diagnosis, including asthma, COPD , emphysema, or sleep apnea, but with pulmonology consult to be scheduled in the near future who presents to the emergency room for evaluation of a 2-3 day history of progressive respiratory distress, in the form of occasional congested cough, wheezing, and just generalized shortness of breath, in particular with much of any exertion. Patient has been discussed with emergency room nurse practitioner who evaluated the patient. She has had no fever or chills, nausea vomiting, diarrhea or dysuria. Took a 10 day course of amoxicillin 3 weeks ago for respiratory problems. Intermittent right sided pressure-like chest discomfort over the last several days, increasing with deep breathing and certain movements. Discomfort is worse when she is most short of breath. No underlying cardiac disease, including hypertension, congestive heart failure, myocardial infarction, pulmonary embolus, or DVT. No chest discomfort at present. Has had neither flu or pneumonia vaccinations. still smokes, but only 3-4 cigarettes a day. Daughter, who recently got out of [facility], apparently smokes quite a bit. Hospital Course Hospital Course: She was started on IV steroids, IV antibiotics and nebulizer treatments. Patient was admitted to the telemetry unit. She had a harsh productive cough with intermittent wheezing. Began to improve over the next 48 hours.. We were able to wean her oxygen to room air. Today she is saturating well at 96% on room air. She continues to have productive cough however her dyspnea has resolved. Physical Exam Vital Signs: Temp Pulse Resp BP Pulse Ox 98.1 F 87 20 137/66 H 98 03/18/17 11:37 03/18/17 11:37 03/18/17 11:37 03/18/17 11:37 03/18/17 11:37 Intake & Output 03/17/17 03/18/17 03/19/17 06:59 06:59 06:59 Intake Total 746 1609 Output Total 800 2200 Balance -54 -591 Weight 83.5 kg General appearance: PRESENT: no acute distress, obese, well-developed, well- nourished Head exam: PRESENT: atraumatic, normocephalic Eye exam: PRESENT: conjunctiva pink, EOMI, PERRLA. ABSENT: scleral icterus Ear exam: PRESENT: normal external ear exam Mouth exam: PRESENT: moist, tongue midline Neck exam: ABSENT: carotid bruit, JVD, lymphadenopathy, thyromegaly Respiratory exam: PRESENT: rhonchi - bilaterally, symmetrical, unlabored Cardiovascular exam: PRESENT: RRR. ABSENT: diastolic murmur, rubs, systolic murmur Pulses: PRESENT: normal dorsalis pedis pul Vascular exam: PRESENT: normal capillary refill GI/Abdominal exam: PRESENT: normal bowel sounds, soft. ABSENT: distended, guarding, mass, organolmegaly, rebound, tenderness Extremities exam: PRESENT: full ROM. ABSENT: calf tenderness, clubbing, pedal edema Musculoskeletal exam: PRESENT: ambulatory, full ROM Neurological exam: PRESENT: alert, awake, oriented to person, oriented to place , oriented to time, oriented to situation, CN II-XII grossly intact. ABSENT: motor sensory deficit Psychiatric exam: PRESENT: appropriate affect, normal mood. ABSENT: homicidal ideation, suicidal ideation Skin exam: PRESENT: dry, intact, warm. ABSENT: cyanosis, rash Results Impressions: Chest X-Ray 03/14/17 19:15 IMPRESSION: NO ACUTE RADIOGRAPHIC FINDING IN THE CHEST. Qualifiers PATEINT BEING DISCHARGED WITH ANY OF THE FOLLOWING DIAGNOSIS?: No Plan Discharge Plan: Home with family Time Spent: Less than 30 Minutes
== END 2017-03-18 11:58 | disposition home or self-care (01) | DRG 191 ==
LOC: ER 18:16 → EH 22:51 → UNDOADMOB 22:51 → EH 23:40 → 4S 03-15 00:07 → OBSVTOIN 03-16 14:48
PROVIDERS: ADMIT Family Medicine; ATTEND Family Medicine
PROC: 3E0F73Z Introduction of Anti-inflammatory into Respiratory Tract, Via Natural or Artificial Opening (ICD-10-PCS; principal; 2017-03-16)
DX: J44.1 Chronic obstructive pulmonary disease with (acute) exacerbation (principal); K50.90 Crohn's disease, unspecified, without complications; E78.5 Hyperlipidemia, unspecified; E03.9 Hypothyroidism, unspecified; K21.9 Gastro-esophageal reflux disease without esophagitis; M79.7 Fibromyalgia; J45.909 Unspecified asthma, uncomplicated; Z88.6 Allergy status to analgesic agent; Z88.1 Allergy status to other antibiotic agents; Z85.41 Personal history of malignant neoplasm of cervix uteri; Z90.710 Acquired absence of both cervix and uterus; Z96.653 Presence of artificial knee joint, bilateral; Z90.49 Acquired absence of other specified parts of digestive tract; Z79.51 Long term (current) use of inhaled steroids; Z79.899 Other long term (current) drug therapy; Z87.891 Personal history of nicotine dependence; Z77.22 Contact with and (suspected) exposure to environmental tobacco smoke (acute) (chronic); Z92.25 Personal history of immunosuppression therapy
CPT/HCPCS: 36415; 71010; 80053; 80061; 81001; 82550; 82553; 82803; 83735; 83880; 84439; 84443; 84481; 84484; 85025; 87040; 93005; 93010; 94640; 94799; 96365; 96375; 99285; G0378; J0690; J0696; J1650; J2930; J3475; J3490; J7030; J7512; J7620

== ENCOUNTER → 2017-07-23 | Outpatient (CLI) | payer MEDICARE ==
--- NOTE | 2017-07-23 10:42 | RADIOLOGY REPORT (SQ) ---
EXAM DESCRIPTION: CT CHEST WITHOUT COMPLETED DATE/TIME: 07/23/2017 10:12 am REASON FOR STUDY: CHRONIC COUGH R05 COUGH COMPARISON: March. TECHNIQUE: CT scan performed of the chest without intravenous contrast. Images reviewed with lung, soft tissue and bone windows. Reconstructed coronal and sagittal MPR images reviewed. All images st ored on PACS. All CT scanners at this facility use dose modulation, iterative reconstruction, and/or weight based d osing when appropriate to reduce radiation dose to as low as reasonably achievable (ALARA). [facility]: Dose Right [facility]: CareDose [facility]: Dose Right [facility]: Teradose 4D [facility]: Smart [employer] RADIATION DOSE: Up-to-date CT equipment and radiation dose reduction techniques were employed. CTDIv ol: 14.3 mGy. DLP: 552 mGy-cm. mGy. LIMITATIONS: No technical limitations. FINDINGS: LUNGS AND PLEURA: No masses, infiltrates, pneumothorax. No pleural effusions, calcificati ons. HILAR AND MEDIASTINAL STRUCTURES: No identified masses or abnormal nodes. No obvious aneurysm. HEART AND VASCULAR STRUCTURES: No aneurysm. No pericardial effusion. UPPER ABDOMEN: No significant findings. Limited exam. THYROID AND OTHER SOFT TISSUES: No masses. No adenopathy. BONES: No significant finding. HARDWARE: None in the chest. OTHER: No other significant findings. IMPRESSION: NO SIGNIFICANT FINDING ON NON-CONTRASTED CHEST CT. TECHNICAL DOCUMENTATION: JOB ID: [id number] Quality ID # [id number]: Final reports with documentation of one or more dose reduction techniques (e.g., Au tomated exposure control, adjustment of the mA and/or kV according to patient size, use of iterative reconstruction technique) 2010 [employer]- All Rights Reserved
== END ==
LOC: RAD 09:55
PROVIDERS: ATTEND Internal Medicine Pulmonary Disease
DX: R05 Cough (principal)
CPT/HCPCS: 71250

== ENCOUNTER → 2017-07-28 | Outpatient (CLI) | payer MEDICARE ==
--- NOTE | 2017-07-28 11:29 | ST Modified Barium Swallow ---
Recommendation - Recommendations Recommendations: Functional swallow skills seen, no further intervention indicated. Continue to follow with GI for reflux symptoms. Medical Diagnoses - Medical Diagnoses Medical Diagnosis Description & ICD-10 Code(s): dysphagia, R13.10 Other Medical Diagnoses/Co-Morbidities: per patient report: COPD, asthma, reflux , emphasyma, chronic bronchitis, spinal surgery approximately 10 years post for cervical spinal fusion ST Modified Barium Swallow - General Date: 07/28/17 Risks/Precautions: None Reason for Referral: globus sensation - History History obtained from: Patient -: Medical Medications: Per patient report: spiriva, cymbacort, alprazalom, carbidopa- levodopa, gabapentin, omeprazole, oxybutynin, phentermine, sertraline, simvastatin, ventolin Allergies: patient reports allergy to morphine and opiods - Functional Status Prior Functional Status: INDEPENDENT: feeding - independent Current Functional Limitations: feeding - no diet modifications - Subjective Patient/caregiver goal(s): safe swallow Cognitive-Linguistic Function: WNL Speech Intelligibility: WNL Current Nutritional Means: PO Current PO diet: Regular Current symptoms: c/o Globus sensation Pain: Patient reports, 2/5 - hip pain - Objective Assessment: Upright, Left Lateral - Food Trials Used Food trials used: Thin liquids, Pureed, Regular The patient: Was Able to Self Feed - Oral-Motor Skills Dentition: Full - Assessment Oral prep: Normal Labial closure: Adequate Leakage: None Mastication: Adequate Lingual Movement: Normal Oral stage: Normal for this Procedure - Pharyngeal Stage Initiation of Pharyngeal Stage Reflex: Normal Decreased laryngeal elevation: No Reduced Velopharyngeal Closure: no Reduced pressure generation: No reduced tongue-based retraction: No Pre-swallow pooling in valleculae: None Pre-Swallow pooling in pyriforms: None Reduced Thyro-Hyoid approximation: No Reduced epiglottic excursion: No Reduced pharyngeal peristalsis/contraction: Yes - mild Multiple Swallows with: Cleared w/ Dry Swallow Post-swallow residulas vallecular: None Post-Swallow residuals in pyriforms: Mild - on solid texture - Fall Risk Assessment Medications/Conditions that increase fall risks include: Antidepressants, sedatives, anti-arrhythmic, diuretic, benzodiazipenes, neuroleptics. BP regulation problems, cardiac problems, balance or gait deficits, neurological problems. Is patient considered at risk for falls: no Fall Risk Actions Taken: No action needed - Behavioral Observations During evaluation process patient: was pleasant, was cooperative, provided medical history Mental Status: Alert & Oriented X3 - Treatment / Educational Needs: Treatment/Education Needs: Treatment consisted of patient education on the role of the Speech Pathologist. Patient's plan of care and golas were communicated as well as scheduling and attendance policies. Recommendations for initial home program were shared. Patient demonstrated understanding and verbalized agreement. - Impression/Summary Laryngeal Penetration: No Tracheal Aspiration: no Patient presents with: Normal swallow at eval Risk of Aspiration: Minimal Risk of nutritional compromise: None Evaluation and Findings: Presents with functional swallow skills. Mild pyriform residue seen with hector cracker trials, cleared easily with second swallow. - Recommendations Solid diet recommendations: Regular Liquid Diet Modification: Thin Dysphagia therapy with ASSISTANT MANAGER AIRSIDE OPERATIONS: no Recommended techniques: Fully Upright During Meal, Dry Swallow After Bite Information, Precautions and Recommendations: Patient (Written), Patient (Verbal ) - Time Total Time: 20 - Plan of Care Strategies to optimize patient understanding include:: ongoing assessment of educational needs, implementation of educational strategies, and re-education. - - -: Thank you for the opportunity to work with this patient and his/her family. Should you have any questions about this patient's plan or progress, I can be reached at [phone]. Charge G Code? - - -: Yes ST F.L. Impairment Category - Rationale Based On Rationale Based On: Func. Asses. Tool Results - Swallowing Current G8996: CI 1-19% Impaired Goal G8997: CI 1-19% Impaired Discharge G8998: CI 1-19% Impaired
--- NOTE | 2017-08-01 11:13 | RADIOLOGY REPORT (SQ) ---
EXAM DESCRIPTION: COOKIE SWALLOW COMPLETED DATE/TIME: 07/28/2017 8:25 am REASON FOR STUDY: DYSPHAGIA (R13.10) R13.10 DYSPHAGIA, UNSPECIFIED FOOD IN PHARYNX CAUSING OTHER IN JURY, SEQUELA T17.228 S COMPARISON: None. TECHNIQUE: Videofluoroscopic swallowing examination was performed in conjunction with speech patholo gy. Videofluoroscopic imaging was obtained and reviewed and these are the findings: RADIATION DOSE: Total fluoroscopy time: 1 minutes 31 seconds 1 fluoroscopy image saved to PACS. LIMITATIONS: None FINDINGS: The patient was brought into the fluoro room and placed upright on a modified barium swall ow chair. The patient was then given multiple consistencies mixed with barium to swallow under live fluoroscopic video guidance. According to the Speech Pathologist there was no laryngeal penetration and no tracheal aspiration. Normal oral and pharyngeal transit time was observed. No significant po st swallow residual was seen. Cervical hardware is intact overlying C5 through C7. Please see speec h pathology report for further details and recommendations. IMPRESSION: NO EVIDENCE OF LARYNGEAL PENETRATION OR TRACHEAL ASPIRATION.PLEASE SEE SPEECH PATHOLOGIS T REPORT FOR OTHER FINDINGS AND RECOMMENDATIONS. COMMENT: Quality ID 145: Final reports for procedures using fluoroscopy that document radiation exp osure indices, or exposure time and number of fluorographic images (if radiation exposure indices are not available) TECHNICAL DOCUMENTATION: JOB ID: [id number] [employer]- All Rights Reserved
== END ==
LOC: RAD 07:37
PROVIDERS: ATTEND Internal Medicine Pulmonary Disease
DX: R13.10 Dysphagia, unspecified (principal); K21.9 Gastro-esophageal reflux disease without esophagitis; J44.9 Chronic obstructive pulmonary disease, unspecified
CPT/HCPCS: 74230; 92611; G8996; G8997; G8998

== ENCOUNTER → 2017-11-21 | Outpatient (CLI) | payer MEDICARE ==
--- NOTE | 2017-11-21 15:55 | WOMENS IMAGING REPORT ---
EXAM DESCRIPTION: 3D SCREENING MAMMO BILAT COMPLETED DATE/TIME: 11/21/2017 8:47 am REASON FOR STUDY: SCREENING MAMMO Z12.31 ENCNTR SCREEN MAMMOGRAM FOR MALIGNANT NEOPLASM OF XIANG COMPARISON: 05/28/2016 and 03/27/2014. TECHNIQUE: Standard craniocaudal and mediolateral oblique views of each breast recorded using digita l acquisition and breast tomosynthesis. LIMITATIONS: None. FINDINGS: No masses, calcifications or architectural distortion. No areas of suspicion. Read with the assistance of CAD. .[facility] R2 Cenova Version 1.3 .[facility] - R2 Cenova Version 1.3 .[facility] Imaging - R2 Cenova Version 2.4 .[facility] [place] - R2 Cenova Version 2.4 .[facility] - R2 Surgery Technician Version 9.2 IMPRESSION: NORMAL MAMMOGRAM. BIRADS 1. BREAST DENSITY: b. There are scattered areas of fibroglandular density. BIRAD: 1 NEGATIVE RECOMMENDATION: ROUTINE SCREENING COMMENT: The patient has been notified of the results by letter per SA requirements. Additional no tification policies are in place for contacting patient with suspicious or incomplete findings. Quality ID #[id number]: The [employer] recommends an annual screening mammogram for women aged 40 years or over. This facility utilizes a reminder system to ensure that all patients receive reminder letters, and/or direct phone calls for appointments. This includes reminders for routine scr eening mammograms, diagnostic mammograms, or other Breast Imaging Interventions when appropriate. Th is patient will be placed in the appropriate reminder system. The [employer] (ACR) has developed recommendations for screening MRI of the breast s in certain patient populations, to be used in conjunction with mammography. Breast MRI surveillanc e may be appropriate for women with more than 20% lifetime risk of developing breast cancer as deter mined by genetic testing, significant family history of the disease, or history of mantle radiation f or Hodgkins Disease. ACR Practice Guidelines 2008. DBT Technology DBT is a type of tomographic mammography. With conventional mammography, overlapping breast tissue ma y make lesions difficult to detect, even with good compression. DBT uses an x-ray tube that rotates a round the breast, taking images at different angles. These images are then combined to create thin sl ices of the breast that the radiologist can view as a 3D reconstruction. The [employer] unit can perform full-field digital mammograms (2D imaging); or DBT (3D imaging); or both, in a combination mode that quickly performs both the mammogram and the tomosynthesis scan while the breast is still compressed. PQRS 6045F: Fluoroscopic imaging is not utilized for breast tomosynthesis. TECHNICAL DOCUMENTATION: FINDING NUMBER: (1) ASSESSMENT: (1) JOB ID: [id number] [employer]- All Rights Reserved Reading location - IP/workstation name: [email or web address]
== END ==
LOC: WI 07:50
PROVIDERS: ATTEND Physician Assistant
DX: Z12.31 Encounter for screening mammogram for malignant neoplasm of breast (principal)
CPT/HCPCS: 77063; 77067

== ENCOUNTER 2018-04-04 05:42 | Day surgery (SDC) | payer MEDICARE ==
[2018-03-28 11:17] LABS: HEMATOCRIT 37.6 % (36.0-47.0); HEMOGLOBIN 12.6 g/dL (12.0-15.5); MEAN CORPUSCULAR HGB CONC 33.6 g/dL (32.0-36.0); MEAN CORPUSCULAR VOLUME 86 fl (80-97); PLATELET COUNT 198 10^3/uL (150-450); RED BLOOD COUNT 4.36 10^6/uL (3.72-5.28); RED CELL DISTRIBUTION WIDTH 14.2 % (11.5-14.0); WHITE BLOOD COUNT 7.1 10^3/uL (4.0-10.5)
[2018-03-28 11:33] LABS: APPEARANCE,URINE CLOUDY; BILIRUBIN,URINE NEGATIVE (NEGATIVE); COLOR,URINE YELLOW; GLUCOSE, URINE NEGATIVE (NEGATIVE); KETONES,URINE TRACE mg/dL (NEGATIVE); LEUKOCYTE ESTERASE,URINE TRACE (NEGATIVE); NITRITE,URINE NEGATIVE (NEGATIVE); PROTEIN,URINE NEGATIVE (NEGATIVE); URINE SPECIFIC GRAVITY 1.025; UROBILINOGEN,URINE NEGATIVE mg/dL (<2.0)
[2018-03-28 11:56] LABS: ANION GAP 13 (5-19); BLOOD UREA NITROGEN 19 mg/dL (7-20); CALCIUM 9.4 mg/dL (8.4-10.2); CARBON DIOXIDE 28 mmol/L (22-30); CHLORIDE 105 mmol/L (98-107); GLUCOSE 95 mg/dL (75-110); POTASSIUM 4.6 mmol/L (3.6-5.0); SODIUM 145.6 mmol/L (137-145)
--- NOTE | 2018-03-28 13:14 | RADIOLOGY REPORT (SQ) ---
EXAM DESCRIPTION: CHEST PA/LATERAL COMPLETED DATE/TIME: 03/28/2018 11:47 am REASON FOR STUDY: PRE-OP COMPARISON: CT chest 07/23/2017 Chest films 03/14/2017, 12/13/2015, 03/27/2014 EXAM PARAMETERS: NUMBER OF VIEWS: two views TECHNIQUE: Digital Frontal and Lateral radiographic views of the chest acquired. RADIATION DOSE: NA LIMITATIONS: none FINDINGS: LUNGS AND PLEURA: No opacities, masses or pneumothorax. No pleural effusion. MEDIASTINUM AND HILAR STRUCTURES: No masses or contour abnormalities. HEART AND VASCULAR STRUCTURES: Heart normal size. No evidence for failure. BONES: No acute findings. HARDWARE: Lower cervical fusion hardware OTHER: No other significant finding. IMPRESSION: NO SIGNIFICANT RADIOGRAPHIC FINDING IN THE CHEST. TECHNICAL DOCUMENTATION: JOB ID: [id number] [employer] All Rights Reserved Reading location - IP/workstation name: [email or web address]
--- NOTE | 2018-03-28 22:05 | EKG REPORT ---
SEVERITY:- NORMAL ECG - SINUS RHYTHM : Confirmed by: Gerber Tilley 28-Mar-2018 22:04:47
[~2018-04-04 05:42] MED LIST: CEFAZOLIN 2 GM/D5W RTU 2 GM/50 ML RTUPB IV PRN; LACTATED RINGERS 1000 ML IV PRN; LIDOCAINE 0.5% INJ-PF (5 MG/ML) 50 ML SDV SUBCUT PRN
[2018-04-04] MEDS ORDERED: LIDOCAINE 1% INJ-PF (10 MG/ML) 30 ML SDV ONE (05:47)
[2018-04-04] MEDS ORDERED: BUPIVACAINE HCL 0.5 % INJ/PF 30 ML SDV ONE (05:47)
[2018-04-04] MEDS ORDERED: ALBUTEROL SULFATE 0.083% NEB 2.5 MG/3 ML AMPUL NEB ONE ×2 (06:04→06:15)
[2018-04-04] MEDS ORDERED: LIDOCAINE 2% INJ-PF (20 MG/ML) 10 ML AMPUL ONE (06:48)
[2018-04-04] MEDS ORDERED: MIDAZOLAM 2 MG/2 ML INJ ONE (06:48)
[2018-04-04] MEDS ORDERED: FENTANYL CITRATE INJ/PF 100 MCG/2 ML AMPUL ONE (06:48)
[2018-04-04] MEDS ORDERED: PROPOFOL INJ 200 MG/20 ML VIAL IV ONE (06:49)
[2018-04-04] MEDS ORDERED: FAMOTIDINE INJ/PF 20 MG/2 ML SDV IV ONE (07:11)
[2018-04-04] MEDS ORDERED: METOCLOPRAMIDE HCL INJ/PF 10 MG/2 ML SDV ONE (07:13)
[2018-04-04] MEDS ORDERED: CITRIC ACID/SODIUM CITRATE ORAL SOLN 15 ML UDCUP ONE (07:13)
[2018-04-04] MEDS ORDERED: DIPHENHYDRAMINE HCL 50 MG/ML VIAL IV PRN (07:34)
[2018-04-04] MEDS ORDERED: ONDANSETRON HCL INJ/PF 4 MG/2 ML SDV IV PRN ×2 (07:34→07:58)
[2018-04-04] MEDS ORDERED: PROMETHAZINE HCL INJ 25 MG/1 ML VIAL IV PRN ×2 (07:34)
[2018-04-04] MEDS ORDERED: MEPERIDINE HCL/PF INJ 25 MG/1 ML DISP.SYRIN IV PRN (07:34)
[2018-04-04] MEDS ORDERED: FENTANYL CITRATE INJ/PF 100 MCG/2 ML AMPUL IV PRN ×3 (07:34)
[2018-04-04] MEDS ORDERED: HYDROCODONE/ACETAMINOPHEN 5-325 MG TABLET PO PRN (07:58)
[2018-04-04] MEDS ORDERED: BETAMET ACET/BETAMET NA INJ 6 MG/1 ML IM ONE (08:15)
[2018-04-04 10:06] VITALS: BP 138/81
--- NOTE | 2018-04-11 07:18 | Operative Report ---
Operative Report DATE OF SURGERY: 04/04/18 PREOPERATIVE DIAGNOSIS: Bilateral carpal tunnel syndrome POSTOPERATIVE DIAGNOSIS: Bilateral carpal tunnel syndrome OPERATION: Endoscopic right carpal tunnel release. Left carpal tunnel injection SURGEON: ASHLI FARAH ANESTHESIA: GA COMPLICATIONS: None ESTIMATED BLOOD LOSS: Minimal PROCEDURE: Indication for above procedure: Pleasant 62-year-old female with complaints of numbness and tingling in her right wrist. Patient history of previous carpal tunnel release on the left and also has similar symptoms on this side once again. Electrodiagnostic testing was done confirming bilateral carpal tunnel syndrome severe on the right. After discussing treatment options decision was made to proceed with operative intervention on the right with injection on the left. Procedure In Detail: Patient was seen and evaluated in the preoperative holding area. The RIGHT upper extremity was initialized and marked. Patient received Ancef IV for bacterial prophylaxis. Patient was taken back to the operative room where transferred operative table. Patient was then placed under MAC anesthesia. Once adequately anesthetized, a nonsterile tourniquet was placed on the upper extremity. A surgical team debriefing was performed ensuring all instrumentation was available, the surgical procedure was discussed with possible concerns reviewed. Skin was prepped with alcohol a 50:50 10 mL mixture of 1% lidocaine and 0.5% Marcaine plain was injected locally and w/in carpal canal. The upper extremity was prepped with chlorhexidine and alcohol and draped in a sterile fashion. A timeout was done identifying correct patient, procedure and extremity everyone in attendance agree with this and verbalized no concerns.The extremity was then exsanguinated the tourniquet was inflated to 250 mmHg. A transverse skin incision was made just proximal to the wrist flexion crease ulnar to the palmaris longus. Blunt dissection was performed down to the palmaris longus tendon which was retracted radially. Deep to the palmaris longus tendon was the volar carpal ligament this was incised identifying the median nerve deep. With the use of a Granton elevator any soft tissue/synovium was freed from the undersurface of the transverse carpal ligament. The hook of hamate was identified ulnarly. The ConMed cannulas were then introduced beginning with #1 progressing to a #3 gently dilating the carpal canal. I then introduced the scope within the cannula and identified transverse carpal ligament ensuring the median nerve was not visualized within the cannula. I triangulated distally with a 25-gauge needle identifying the distal aspect of the transverse carpal ligament, to ensure protection of the superficial palmar arch. The arthroscopic knife was used to incise the transverse carpal ligament under direct visualization with the arthroscopic camera. Any excess transverse fibers that remained after the first past were carefully released with a repeat pass. The median nerve was then directly visualized radially without disruption. Once this was completed I placed the #3 dilator and assured I got complete release of the transverse carpal ligament without residual compression. The median nerve was directly visualized and free of any overlying compression. I then turned my attention to release of the volar antebrachial fascia proximally. Once again a Granton was used to open the wound and I proceeded with cannula #1 to #3. The arthroscope was introduced into the cannula and under direct visualization the volar antebrachial fascia was released. Once this was complete I copiusly irrigated the wound with normal saline. The skin incision was closed with 4-0 Monocryl subcutaneous and a running subcuticular 4-0 Monocryl. This was reinforced with Dermabond and Steri -Strips. Sterile, 4 x 4's and a Aman bandage was placed loosely. Left wrist was prepped with alcohol. 1 cc of 6 mg Celestone and 1 cc of lidocaine were injected into the carpal canal. Sponge counts, instrument counts and needle counts were correct. The was no intraoperative complications patient tolerated the procedure well and was stable to PACU.
--- NOTE | 2018-04-11 07:18 | Discharge Summary ---
Discharge Summary (SDC) - Discharge Final Diagnosis: Bilateral carpal tunnel syndrome Date of Surgery: 04/04/18 Discharge Date: 04/04/18 Condition: Good Forms: ASU Anesthesia D/C Instruction, Discharge POC-Surgical Service Prescriptions: Hydrocodone/Acetaminophen [[place] 5-325 mg Tablet] 1 tab PO Q6 PRN #10 tablet PRN Reason: Referrals: ASHLI FARAH DO [ACTIVE STAFF] - 04/17/18 1:00 pm Respiratory Treatments at Home: Deep Breathing/Coughing Discharge Activity: No Lifting/Push/Pulling Home Care Assistance: None Needed Report the Following to Your Physician Immediately: Increase in Pain, Fever over 101 Degrees, Unusual Bleeding, Redness, Swelling, Warmth, Drainage-Foul Smelling, Numbness, Tingling Sensation, IV Site Infection Signs
== END 2018-04-04 09:40 | disposition home or self-care (01) ==
LOC: OROUT 05:42 → EDSTATUS 07:30 → OROUT 09:40
PROVIDERS: ATTEND Orthopaedic Surgery
DX: G56.03 Carpal tunnel syndrome, bilateral upper limbs (principal); E78.5 Hyperlipidemia, unspecified; M19.90 Unspecified osteoarthritis, unspecified site; G20 Parkinson's disease; G62.9 Polyneuropathy, unspecified; J43.9 Emphysema, unspecified; M79.7 Fibromyalgia; J45.909 Unspecified asthma, uncomplicated; E07.9 Disorder of thyroid, unspecified; R32 Unspecified urinary incontinence; Z85.828 Personal history of other malignant neoplasm of skin; Z88.5 Allergy status to narcotic agent; Z79.51 Long term (current) use of inhaled steroids; Z79.899 Other long term (current) drug therapy; Z85.41 Personal history of malignant neoplasm of cervix uteri
CPT/HCPCS: 93005; 36415; 85027; 80048; 81001; 71046; 93010; 94640; 29848; 20526; J2250; J3010; J3490 ×3; J2765; J0702; J2704; S0028; A9270; J0690; 1810

== ENCOUNTER → 2019-01-15 | Outpatient (CLI) | payer MEDICARE ==
--- NOTE | 2019-01-15 11:38 | RADIOLOGY REPORT (SQ) ---
EXAM DESCRIPTION: MRI CERVICAL SPINE WITHOUT COMPLETED DATE/TIME: 01/15/2019 10:47 am REASON FOR STUDY: CERVICALGIA M54.2 CERVICALGIA COMPARISON: Cervical spine plain films 09/28/2007 TECHNIQUE: Sagittal and Axial imaging includes T1, T2, STIR and gradient echo sequences. LIMITATIONS: None. FINDINGS: ALIGNMENT: Normal. VERTEBRAE: Intact. BONE MARROW: Normal. No marrow replacement or reactive changes. DISCS: Fusion from C5 through C7. The other cervical discs are decreased in T2 weighted signal HARDWARE: Fusion from 5 through C7 with an anterior fixation plate and anchoring screws in the C5-C6 and C7 vertebral bodies. CORD AND BASE OF BRAIN: Normal in size and signal intensity. SOFT TISSUES: No soft tissue masses. C1-C2: No significant spinal stenosis. C2-C3: No significant spinal stenosis or exit foraminal stenosis. C3-C4: Minimal posterior disc bulging is present and mild left facet hypertrophy is present. Mild le ft foraminal narrowing. No central canal or right foraminal narrowing C4-C5: Broad diffuse posterior disc bulging is present partially effacing the ventral thecal sac with out cord flattening or abnormal intrinsic cord signal. No significant central canal or right foramin al narrowing. Asymmetric left-sided facet and uncovertebral hypertrophy causes moderate left C4-5 fo raminal narrowing. C5-C6: Post fusion, no central canal narrowing. Mild bilateral foraminal narrowing C6-C7: Post fusion, no central stenosis or right foraminal narrowing. Mild left foraminal narrowing C7-T1: Bulky bilateral facet hypertrophy is present causing high-grade bilateral foraminal narrowing, best shown on sagittal T2 images 2-5, sagittal T2 images 11-13. No central stenosis. UPPER THORACIC: Very mild bilateral T1-2 foraminal narrowing from facet arthropathy OTHER: No other significant finding. IMPRESSION: Bilateral foraminal narrowing at C7-T1. Left foraminal narrowing at C3-4 and C4-5 Post fusion at C5-6 and C6-7 TECHNICAL DOCUMENTATION: JOB ID: [id number]- All Rights Reserved Reading location - IP/workstation name: [email or web address]
== END ==
LOC: RAD 09:56
PROVIDERS: ATTEND Anesthesiology Pain Medicine
DX: M54.2 Cervicalgia (principal)
CPT/HCPCS: 72141

== ENCOUNTER 2019-02-11 20:56 | Emergency (ER) | payer MEDICARE ==
[2019-02-11] MEDS ORDERED: FAMOTIDINE INJ/PF 20 MG/2 ML SDV IV ONE (21:31)
[2019-02-11] MEDS ORDERED: EPINEPHRINE INJ/PF 1 MG/1 ML AMPULE ONE (21:51)
[2019-02-11] MEDS ORDERED: EPINEPHRINE INJ/PF 1 MG/1 ML AMPULE IM ONE (21:57)
[2019-02-11] MEDS ORDERED: CETIRIZINE 10 MG TABLET PO ONE (22:05)
--- NOTE | 2019-02-11 22:07 | ER Document Report ---
ED General - General Stated Complaint: REPORTS ALLERGIC REACTION Time Seen by Provider: 02/11/19 21:46 Primary Care Provider: PILAR GRAY MD [NO LOCAL MD] - Follow up as needed Notes: Patient is a 63-year-old female recently started on Lyrica who presents with urticaria, swelling of the hands as well as mild swelling of the lips. Patient states that she started taking this medication 2 days ago, began noticing symptoms earlier today and they have progressively worsened throughout the day. Was seen in urgent care earlier today and treated with Benadryl with minimal improvement. EMS subsequently contacted and patient was transported to the emergency department after receiving epinephrine as well as steroids. Patient states that these interventions have provided moderate relief but continues to report a severe pruritic, constant discomfort to patchy areas of urticaria on her abdomen, back and across her hands. Denies difficulty breathing, difficulty swallowing, lightheadedness or syncope. No nausea vomiting or diarrhea. No history of similar symptoms in the past. TRAVEL OUTSIDE OF THE [place] IN LAST 30 DAYS: No - Related Data Allergies/Adverse Reactions: morphine [Morphine] Allergy (Severe, Verified 03/15/17 00:49) N&V, itching, resp distress ciprofloxacin [From Cipro] Allergy (Intermediate, Verified 12/13/15 14:07) N&V,rash oxycodone [From Percocet] Adverse Reaction (Severe, Verified 03/28/18 11:11) GI distress Past Medical History - General Information source: Patient - Social History Smoking Status: Never Smoker Frequency of alcohol use: None Drug Abuse: None Lives with: Spouse/Significant other Family History: Reviewed & Not Pertinent - Past Medical History Cardiac Medical History: Reports: Hx Hypercholesterolemia Denies: Hx Congestive Heart Failure, Hx Coronary Artery Disease, Hx DVT, Hx Heart Attack, Hx Hypertension, Hx Pulmonary Embolism Pulmonary Medical History: Reports: Hx Asthma - inhalers, Hx Bronchitis - inhalers, Hx Pneumonia Denies: Hx COPD, Hx Respiratory Failure, Hx Sleep Apnea, Hx Tuberculosis Neurological Medical History: Denies: Hx Cerebrovascular Accident, Hx Seizures Endocrine Medical History: Reports: Hx Hypothyroidism. Denies: Hx Diabetes Mellitus Type 1, Hx Diabetes Mellitus Type 2, Hx Graves' Disease, Hx Hyperthyroidism Renal/ Medical History: Reports: Hx Ovarian Cysts - 2007, [facility]. Denies: Hx End Stage Renal Disease, Hx Kidney Stones, Hx Peritoneal Dialysis, Hx Pelvic Inflammatory Disease Malignancy Medical History: Reports: Hx Cervical Cancer - 1993. Denies: Hx Breast Cancer, Hx Leukemia, Hx Lung Cancer, Hx Ovarian Cancer GI Medical History: Reports: Hx Crohn's Disease, Hx Gastroesophageal Reflux Disease. Denies: Hx Cirrhosis, Hx Hepatitis, Hx Hiatal Hernia, Hx Irritable Bowel, Hx Liver Failure, Hx Pancreatitis, Hx Ulcer Musculoskeletal Medical History: Reports Hx Arthritis - all over, Reports Hx Fibromyalgia, Denies Hx Muscular Dystrophy, Denies Hx Systemic Lupus Erythematosus Psychiatric Medical History: Reports: Hx Anxiety, Hx Depression Denies: Hx Bipolar Disorder, Hx Post Traumatic Stress Disorder, Hx Schizophrenia Traumatic Medical History: Reports: Hx Fractures Infectious Medical History: Denies: Hx C-Diff, Hx Hepatitis, Hx HIV, Hx MRSA Past Surgical History: Reports: Hx Gynecologic Surgery - cervical, Hx Hysterectomy, Hx Orthopedic Surgery - bilateral tkr, spinal, Hx Tonsillectomy - at age 13 yrs old, Hx Tubal Ligation. Denies: Hx Appendectomy, Hx Bowel Surgery, Hx Section, Hx Cholecystectomy, Hx Colostomy, Hx Coronary Artery Bypass Graft, Hx Gastric Bypass Surgery, Hx Herniorrhaphy, Hx Mastectomy, Hx Pacemaker - Immunizations Hx Diphtheria, Pertussis, Tetanus Vaccination: Yes Review of Systems - Review of Systems Notes: Constitutional: Negative for fever. HENT: Negative for sore throat. Eyes: Negative for visual changes. Cardiovascular: Negative for chest pain. Respiratory: Negative for shortness of breath. Gastrointestinal: Negative for abdominal pain, vomiting or diarrhea. Genitourinary: Negative for dysuria. Musculoskeletal: Negative for back pain. Skin: Positive for rash. Positive for pruritus Neurological: Negative for headaches, weakness or numbness. 10 point ROS negative except as marked above and in HPI. Physical Exam - Vital signs Vitals: Pulse Ox 97 02/11/19 21:00 Interpretation: Normal Notes: PHYSICAL EXAMINATION: GENERAL: Appears moderately uncomfortable but in no acute distress HEAD: Atraumatic, normocephalic. EYES: Pupils equal round and reactive to light, extraocular movements intact, sclera anicteric, conjunctiva are normal. ENT: nares patent, oropharynx clear without exudates. No oropharyngeal edema. Moist mucous membranes. NECK: Normal range of motion, supple without lymphadenopathy, no stridor LUNGS: Breath sounds clear to auscultation bilaterally and equal. No wheezes rales or rhonchi. HEART: Regular rate and rhythm without murmurs ABDOMEN: Soft, nontender, normoactive bowel sounds. No guarding, no rebound. No masses appreciated. EXTREMITIES: Normal range of motion, no pitting or edema. No cyanosis. NEUROLOGICAL: No focal neurological deficits. Moves all extremities spontaneously and on command. PSYCH: Normal mood, normal affect. SKIN: Warm, Dry, normal turgor, scattered areas of urticaria across the bilateral hands, abdomen, back and forearms bilaterally Course - Re-evaluation Re-evalutation: 02/11/19 22:05 Patient presents with symptoms consistent with an allergic reaction without anaphylaxis. Only cutaneous involvement with multiple areas of hives. Did have some mild swelling to the bilateral hands and lips but no posterior pharyngeal involvement. Vitals otherwise within normal limits at time of arrival. No respiratory, GI, cardiovascular, or oral pharyngeal symptoms. A trial of epinephrine for symptom resolution was offered to the patient. This did resolve the majority of the patient's hives. Will recommend ongoing antihistamine therapy as an outpatient. Discontinuation of Lyrica has been advised as this does appear to be the trigger for her symptoms today. At this time will discharge with return precautions and follow-up recommendations. Verbal discharge instructions given a the bedside and opportunity for questions given. Medication warnings reviewed. Patient is in agreement with this plan and has verbalized understanding of return precautions and the need for primary care follow-up in the next 24-72 hours. - Vital Signs Vital signs: Temp Pulse Resp BP Pulse Ox 20 140/67 H 96 02/11/19 23:16 02/11/19 23:16 02/11/19 23:16 Discharge - Discharge Clinical Impression: Urticaria Allergic reaction caused by a drug Qualifiers: Encounter type: initial encounter Qualified Code(s): T78.40XA - Allergy, unspecified, initial encounter Hand swelling Qualifiers: Laterality: bilateral Qualified Code(s): M79.89 - Other specified soft tissue disorders Condition: Good Disposition: HOME, SELF-CARE Additional Instructions: You were seen today for an allergic reaction likely caused by Lyrica. Please discontinue this medication immediately. You can continue to take cetirizine 10mg up to 3 times daily as needed for itching. IF YOU DEVELOP DIFFICULTY BREATHING, SPREADING OF HIVES, VOMITING, LIGHTHEADEDNESS, IMMEDIATELY AND CALL [phone]. Please follow-up with your primary care physician in the next 1-2 days. Referrals: PILAR GRAY MD [NO LOCAL MD] - Follow up as needed
[2019-02-11 23:26] VITALS: BP 140/67
== END 2019-02-11 23:31 | disposition home or self-care (01) ==
LOC: ER 20:56
DX: L50.0 Allergic urticaria (principal); T50.905A Adverse effect of unspecified drugs, medicaments and biological substances, initial encounter; J45.909 Unspecified asthma, uncomplicated; Z85.41 Personal history of malignant neoplasm of cervix uteri; Z88.5 Allergy status to narcotic agent; Z88.1 Allergy status to other antibiotic agents; M79.89 Other specified soft tissue disorders
CPT/HCPCS: 99283; 96372; 96374; J0171; S0028; A9270

== ENCOUNTER → 2019-04-19 | Outpatient (CLI) | payer MEDICARE ==
--- NOTE | 2019-04-19 16:45 | WOMENS IMAGING REPORT ---
EXAM DESCRIPTION: 3D SCREENING MAMMO BILAT COMPLETED DATE/TIME: 04/19/2019 9:56 am REASON FOR STUDY: ROUTINE BILATERAL SCREENING;Z12.31 Z12.31 ENCNTR SCREEN MAMMOGRAM FOR MALIGNANT N EOPLASM OF XIANG COMPARISON: Multiple since 2009 EXAM PARAMETERS: Views: Standard craniocaudal and mediolateral oblique views of each breast recorded using digital acquisition and breast tomosynthesis. Read with the assistance of CAD. .[facility] - Let Scutcher Tender Version 9.2 LIMITATIONS: None. FINDINGS: No suspicious masses, suspicious calcifications or architectural distortion. No areas of c oncern. IMPRESSION: NEGATIVE MAMMOGRAM. BIRADS 1. BREAST DENSITY: b. There are scattered areas of fibroglandular density. BIRAD: ASSESSMENT: 1 NEGATIVE RECOMMENDATION: ROUTINE SCREENING COMMENT: The patient has been notified of the results by letter per MQSA requirements. Additional no tification policies are in place for contacting patient with suspicious or incomplete findings. Quality ID #225: The [employer] recommends an annual screening mammogram for women aged 40 years or over. This facility utilizes a reminder system to ensure that all patients receive reminder letters, and/or direct phone calls for appointments. This includes reminders for routine scr eening mammograms, diagnostic mammograms, or other Breast Imaging Interventions when appropriate. Th is patient will be placed in the appropriate reminder system. TECHNICAL DOCUMENTATION: FINDING NUMBER: (1) ASSESSMENT: (1) JOB ID: [id number]- All Rights Reserved Reading location - IP/workstation name: [email or web address]
== END ==
LOC: WI 09:38
PROVIDERS: ATTEND Physician Assistant
DX: Z12.31 Encounter for screening mammogram for malignant neoplasm of breast (principal)
CPT/HCPCS: 77063; 77067

== ENCOUNTER → 2019-12-04 | Outpatient (CLI) | payer MEDICARE ==
[2019-12-04 16:00] LABS: HEMATOCRIT 34.4 % (36.0-47.0); HEMOGLOBIN 11.9 g/dL (12.0-15.5); MEAN CORPUSCULAR HEMOGLOBIN 29.5 pg (27.0-33.4); MEAN CORPUSCULAR HGB CONC 34.7 g/dL (32.0-36.0); MEAN CORPUSCULAR VOLUME 85 fl (80-97); PLATELET COUNT 203 10^3/uL (150-450); RED BLOOD COUNT 4.04 10^6/uL (3.72-5.28); RED CELL DISTRIBUTION WIDTH 13.4 % (11.5-14.0); WHITE BLOOD COUNT 7.2 10^3/uL (4.0-10.5)
[2019-12-04 16:24] LABS: ALBUMIN 4.3 g/dL (3.5-5.0); ALKALINE PHOSPHATASE 59 U/L (38-126); ANION GAP 8 (5-19); ASPARTATE AMINO TRANSFERASE 31 U/L (14-36); BILIRUBIN,DIRECT 0.2 mg/dL (0.0-0.4); BILIRUBIN,TOTAL 0.6 mg/dL (0.2-1.3); BLOOD UREA NITROGEN 14 mg/dL (7-20); CALCIUM 9.2 mg/dL (8.4-10.2); CARBON DIOXIDE 28 mmol/L (22-30); CHLORIDE 103 mmol/L (98-107); GLUCOSE 89 mg/dL (75-110); POTASSIUM 4.3 mmol/L (3.6-5.0); TOTAL PROTEIN 7.8 g/dL (6.3-8.2)
[2019-12-04 16:29] LABS: C-REACTIVE PROTEIN < 5.0 mg/L (<10.0)
== END ==
LOC: OD 14:59
PROVIDERS: ATTEND Internal Medicine Gastroenterology
DX: K50.00 Crohn's disease of small intestine without complications (principal)
CPT/HCPCS: 36415; 80048; 80076; 83735; 85027; 86140

== ENCOUNTER → 2019-12-11 | Outpatient (CLI) | payer MEDICARE, OTHER ==
--- NOTE | 2019-12-11 10:03 | WOMENS IMAGING REPORT ---
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 LIMITATIONS: None. FINDINGS: LUMBAR SPINE: The bone mineral density (BMD) measured from L1-L4 in the AP projection correlates with a T-score of -0.3, which is normal as defined by the World Health Organization. HIP: The bone mineral density (BMD) measured in the left hip correlates with a T-score of 1.6, which is no rmal as defined by the World Health Organization. There has been a 7.1% improvement since baseline in the hip. There has been a -4.0% change since bas emerald in the lumbar spine. IMPRESSION: 1. LUMBAR SPINE: NORMAL. 2. HIP: NORMAL. COMMENT: The World Health Organization defines low BMD as follows: T-score: Normal: Greater than -1.0 Osteopenia: Between -1.0 and -2.5 Osteoporosis: Less than -2.5 without fractures Established osteoporosis: Less than -2.5 with fractures In general, you may wish to consider: Diagnosis Treatment Follow-up DEXA Normal BMD Prevention 2-3 years Osteopenia Prevention/Therapy 1-2 years Osteoporosis Therapy Yearly TECHNICAL DOCUMENTATION: JOB ID: [id number] 2010 [employer]- All Rights Reserved Reading location - IP/workstation name: [email or web address]
== END ==
LOC: WI 09:15
PROVIDERS: ATTEND Internal Medicine Gastroenterology
DX: K50.00 Crohn's disease of small intestine without complications (principal); Z78.0 Asymptomatic menopausal state; Z79.899 Other long term (current) drug therapy
CPT/HCPCS: 77080

== ENCOUNTER 2020-01-15 02:29 | Emergency (ER) | payer MEDICARE ==
[2020-01-15] MEDS ORDERED: NORMAL SALINE 500 ML IV ONE (08:00)
[2020-01-15] MEDS ORDERED: HYDROMORPHONE HCL INJ/PF 2 MG/ML AMPULE IV ONE ×2 (08:02→12:56)
[2020-01-15] MEDS ORDERED: ONDANSETRON HCL INJ/PF 4 MG/2 ML SDV IV ONE ×2 (08:02→12:30)
[2020-01-15 08:59] LABS: ABSOLUTE LYMPHOCYTES (AUTO) 1.6 10^3/uL (0.5-4.7); ABSOLUTE MONOCYTES (AUTO) 0.5 10^3/uL (0.1-1.4); ABSOLUTE NEUT (AUTO) 7.9 10^3/uL (1.7-8.2); BASOPHILS % (AUTO) 0.3 % (0-2); EOSINOPHILS % (AUTO) 0.2 % (0-6); HEMATOCRIT 40.5 % (36.0-47.0); HEMOGLOBIN 14.1 g/dL (12.0-15.5); LYMPHOCYTES % (AUTO) 15.9 % (13-45); MEAN CORPUSCULAR HEMOGLOBIN 29.7 pg (27.0-33.4); MEAN CORPUSCULAR VOLUME 85 fl (80-97); MONOCYTES % (AUTO) 5.5 % (3-13); PLATELET COUNT 236 10^3/uL (150-450); RED BLOOD COUNT 4.76 10^6/uL (3.72-5.28); RED CELL DISTRIBUTION WIDTH 13.7 % (11.5-14.0); SEGMENTED NEUTROPHILS % (AUTO) 78.1 % (42-78); TOTAL CELLS COUNTED % (AUTO) 100 %; WHITE BLOOD COUNT 10.1 10^3/uL (4.0-10.5)
[2020-01-15 09:08] LABS: APPEARANCE,URINE CLOUDY; BILIRUBIN,URINE NEGATIVE (NEGATIVE); COLOR,URINE YELLOW; GLUCOSE, URINE NEGATIVE (NEGATIVE); KETONES,URINE NEGATIVE (NEGATIVE); LEUKOCYTE ESTERASE,URINE LARGE (NEGATIVE); NITRITE,URINE NEGATIVE (NEGATIVE); PROTEIN,URINE 100 mg/dL (NEGATIVE); URINE SPECIFIC GRAVITY 1.028; UROBILINOGEN,URINE NEGATIVE mg/dL (<2.0)
[2020-01-15 09:21] LABS: ALBUMIN 4.5 g/dL (3.5-5.0); ALKALINE PHOSPHATASE 62 U/L (38-126); ANION GAP 10 (5-19); ASPARTATE AMINO TRANSFERASE 28 U/L (14-36); BILIRUBIN,TOTAL 0.5 mg/dL (0.2-1.3); BLOOD UREA NITROGEN 25 mg/dL (7-20); CALCIUM 9.9 mg/dL (8.4-10.2); CARBON DIOXIDE 28 mmol/L (22-30); CHLORIDE 100 mmol/L (98-107); GLUCOSE 127 mg/dL (75-110); POTASSIUM 4.4 mmol/L (3.6-5.0)
--- NOTE | 2020-01-15 11:42 | RADIOLOGY REPORT (SQ) ---
EXAM DESCRIPTION: CT ABD/PELVIS WITH IV ORAL IMAGES COMPLETED DATE/TIME: 01/15/2020 11:06 am REASON FOR STUDY: abd pain/crohns disease COMPARISON: None. TECHNIQUE: CT scan of the abdomen and pelvis performed using helical scanning technique with dynamic intravenous contrast injection. No oral contrast. Images reviewed with lung, soft tissue, and bone windows. Reconstructed coronal and sagittal MPR images reviewed. Delayed images for evaluation of the urinary system also acquired. All images stored on PACS. All CT scanners at this facility use dose modulation, iterative reconstruction, and/or weight based d osing when appropriate to reduce radiation dose to as low as reasonably achievable (ALARA). [facility]: Dose Right [facility]: CareDose [facility]: Dose Right [facility]: Teradose 4D [facility]: [employer] CONTRAST TYPE AND DOSE: Contrast/concentration: Isovue 350.00 mg/ml; Total Contrast Delivered: 99.0 ml; Total Saline Delivered: 63.3 ml RENAL FUNCTION: CT of the abdomen pelvis with contrast from 06/28/2013. RADIATION DOSE: CT Rad equipment meets quality standard of care and radiation dose reduction techniq ues were employed. CTDIvol: 11.4 - 16.2 mGy. DLP: 2479 mGy-cm.. LIMITATIONS: None. FINDINGS: LOWER CHEST: No acute findings. LIVER: The relative hypoattenuation hepatic parenchyma and compared to the splenic parenchyma on the portal venous phase is suggestive of hepatic steatosis. The portal veins are patent. There is no he patic mass. SPLEEN: No splenomegaly or splenic mass. PANCREAS: No acute gross abnormality of the pancreas. GALLBLADDER: No abnormality that is apparent on CT. ADRENAL GLANDS: No mass or asymmetry. RIGHT KIDNEY AND URETER: No solid masses. No calcifications. No hydronephrosis or hydroureter. LEFT KIDNEY AND URETER: No solid masses. No calcifications. No hydronephrosis or hydroureter. AORTA AND VESSELS: No aneurysm or dissection of the abdominal aorta. RETROPERITONEUM: No retroperitoneal adenopathy, hemorrhage or mass. BOWEL AND PERITONEAL CAVITY: There is a segment of circumferential bowel wall thickening involving th e terminal ileum. The stomach, duodenum, jejunum and proximal ileum are distended and filled with fl uid. The mesenteric vasa recta are engorged and there is a trace amount of free fluid in the right he patic space and around several loops of proximal ileum. There is no free intraperitoneal gas, pneumat osis, intra-abdominal abscess or evidence of a fistula. APPENDIX: Unable to identify the appendix. PELVIS: The uterus is surgically absent. The urinary bladder is partially distended. ABDOMINAL WALL: No masses or hernias. BONES: Transition anatomy at the lumbosacral junction with partial sacralization of the L5 vertebral body. There is no evidence of sacroiliitis. OTHER: No other finding. IMPRESSION: Findings as detailed above are concerning for an acute exacerbation of Crohn's disease t hat is associated with an ileus. TECHNICAL DOCUMENTATION: JOB ID: [id number] Quality ID # [id number]: Final reports with documentation of one or more dose reduction techniques (e.g., Au tomated exposure control, adjustment of the mA and/or kV according to patient size, use of iterative reconstruction technique) 2010 [employer]- All Rights Reserved Reading location - IP/workstation name: [email or web address]
[2020-01-15] MEDS ORDERED: NORMAL SALINE 1000 ML 1,000 ML IV ONE (12:23)
[2020-01-15] MEDS ORDERED: CEFEPIME 1 GM/D5W RTU 1 GM/50 ML RTUPB IV ONE (12:27)
[2020-01-15] MEDS ORDERED: MORPHINE SULFATE 10 MG/ML INJ IV ONE (12:28)
[2020-01-15] MEDS ORDERED: METRONIDAZOLE 500 MG TABLET PO ONE (12:56)
--- NOTE | 2020-01-15 13:57 | ER Document Report ---
Entered by FALLON HOLCOMB SCRIBE 01/15/20 0711 Acting as scribe for:MALI BUSTILLOS MD ED GI/ - General Chief Complaint: Abdominal Pain Stated Complaint: ABDOMINAL PAIN Primary Care Provider: COLLEEN HERNANDEZ PA-C [Primary Care Provider] - Follow up as needed Mode of Arrival: Ambulatory Information source: Patient Notes: This 64 year old female patient with a history of Crohn's disease and GERD brought in by EMS presents to the ED today with complaints of generalized abdominal pain that started around 1615 yesterday afternoon. Patient states the pain is a cramping sensation and reports associated nausea and vomiting with emesis that appears to be undigested food. She notes that she takes Humira for Crohn's disease and sees Dr. Ray for gastroenterology. She also reports back pain, cough, and difficulty swallowing due to GERD. Denies bloody stools, skin rash, suicidal or homicidal ideation. Denies history of abdominal surgeries. TRAVEL OUTSIDE OF THE [place] IN LAST 30 DAYS: No - Related Data Allergies/Adverse Reactions: morphine [Morphine] Allergy (Severe, Verified 03/15/17 00:49) N&V, itching, resp distress pregabalin [From Lyrica] Allergy (Severe, Verified 01/15/20 12:44) Hives ciprofloxacin [From Cipro] Allergy (Intermediate, Verified 12/13/15 14:07) N&V,rash Past Medical History - General Information source: Patient, [facility] Records - Social History Smoking Status: Former Smoker Cigarette use (# per day): No Chew tobacco use (# tins/day): No Smoking Education Provided: No Frequency of alcohol use: None Drug Abuse: None Lives with: Spouse/Significant other Family History: Reviewed & Not Pertinent Patient has suicidal ideation: No Patient has homicidal ideation: No - Past Medical History Cardiac Medical History: Reports: Hx Hypercholesterolemia Pulmonary Medical History: Reports: Hx Asthma - inhalers, Hx Bronchitis - inhalers, Hx Pneumonia Endocrine Medical History: Reports: Hx Hypothyroidism Renal/ Medical History: Reports: Hx Ovarian Cysts - 2006, [facility] BSO Malignancy Medical History: Reports: Hx Cervical Cancer - 1992 GI Medical History: Reports: Hx Crohn's Disease, Hx Gastroesophageal Reflux Disease Musculoskeletal Medical History: Reports Hx Arthritis - all over, Reports Hx Fibromyalgia Psychiatric Medical History: Reports: Hx Anxiety, Hx Depression Traumatic Medical History: Reports: Hx Fractures Past Surgical History: Reports: Hx Gynecologic Surgery - cervical, Hx Hysterectomy, Hx Orthopedic Surgery - bilateral tkr, spinal, Hx Tonsillectomy - at age 13 yrs old, Hx Tubal Ligation - Immunizations Hx Diphtheria, Pertussis, Tetanus Vaccination: Yes Review of Systems - Review of Systems Constitutional: No symptoms reported EENT: See HPI, Difficulty swallowing Cardiovascular: No symptoms reported Respiratory: See HPI, Cough Gastrointestinal: Abdominal pain, Nausea, Vomiting, Last bowel movement - last night. denies: Blood streaked bowels Genitourinary: No symptoms reported Female Genitourinary: No symptoms reported Musculoskeletal: See HPI, Back pain Skin: See HPI. denies: Rash Hematologic/Lymphatic: No symptoms reported Neurological/Psychological: See HPI. denies: Homicidal ideation, Suicidal ideation -: Yes All other systems reviewed and negative Physical Exam - Vital signs Vitals: Temp Pulse Resp BP Pulse Ox 97.9 F 99 16 107/60 89 L 01/15/20 02:36 01/15/20 02:36 01/15/20 02:36 01/15/20 02:36 01/15/20 02:36 - General General appearance: Alert In distress: None - HEENT Head: Normocephalic, Atraumatic Eyes: Normal Pupils: PERRL - Respiratory Respiratory status: No respiratory distress Chest status: Nontender Breath sounds: Normal Chest palpation: Normal - Cardiovascular Rhythm: Regular Heart sounds: Normal auscultation, S1 appreciated, S2 appreciated Murmur: No Friction rub: No Gallop: None auscultated - Abdominal Inspection: Obese Distension: Distended Bowel sounds: Normal Tenderness: Tender - Diffuse tenderness to palpation in all quadrants, Guarding - Minimal Organomegaly: No organomegaly - Back Back: Normal, Nontender - Extremities General upper extremity: Normal inspection General lower extremity: Normal inspection. No: Edema - Neurological Neuro grossly intact: Yes Orientation: AAOx4 - Psychological Associated symptoms: Normal affect, Normal mood - Skin Skin Temperature: Warm Skin Moisture: Dry Skin Color: Normal, [address] Skin irregularity: negative: Rash Course - Re-evaluation Re-evalutation: 01/15/20 13:39 Patient reports she feels better at this time less nausea and less abdominal pain. 01/15/20 13:40 Discussed case with the hospitalist admit team and discussed with Dr. bradley. Dr. Catalan requested I speak to Dr. Ray, who is the rarely that yet product marketing programs manager for this patient. Dr. Ray discussed patient with me over the telephone and his understanding is that patient most likely has an in fectious disease at this time and not a flareup of Crohn's disease with a history that he was given. Also Dr. Ray is thought that patient that should be having a trial of outpatient management of this GI problem at this time. He thought the benefit of being out of the hospital was greater than the trial greater benefit than a trial of putting patient in the hospital under the conditions of his pandemic COVID-19. Dr. Ray plans to follow-up with patient in his clinic. - Vital Signs Vital signs: Temp Pulse Resp BP Pulse Ox 97.5 F 72 14 117/67 94 01/15/20 13:00 01/15/20 13:00 01/15/20 13:00 01/15/20 13:00 01/15/20 13:00 01/15/20 13:39 Vital signs stable - Laboratory Result Diagrams: 01/15/20 08:43 01/15/20 08:43 Laboratory results interpreted by me: 01/15/20 01/15/20 01/15/20 08:43 08:43 08:43 Seg Neutrophils % 78.1 H BUN 25 H Glucose 127 H Urine Protein 100 H Ur Leukocyte Esterase LARGE H Urine Ascorbic Acid 40 H - Diagnostic Test Radiology reviewed: Image reviewed, Reports reviewed Radiology results interpreted by me: 01/15/20 13:39 CT abdomen pelvis with IV and oral contrast shows a flareup of Crohn's disease with circumferential swelling from the stomach down to the terminal ileum. There is no obstruction noted. Discharge - Discharge Clinical Impression: Abdominal pain, Bacterial enteritis, unspecified Condition: Good Disposition: HOME, SELF-CARE Instructions: Antinausea Medication ([facility]) Prescriptions: Hydromorphone HCl [Dilaudid] 1 mg PO TID PRN 4 Days #12 ml PRN Reason: severe pain Metronidazole [Flagyl 500 mg Tablet] 500 mg PO Q6H #28 tablet Ondansetron [Zofran Odt 4 mg Tablet] 1 - 2 tab PO Q4H PRN #20 tab.rapdis PRN Reason: For Nausea/Vomiting Referrals: BUNDLE,COLLEEN, PA-C [Primary Care Provider] - Follow up as needed GEOFF RAY MD [ACTIVE STAFF] - Follow up in 3-5 days I personally performed the services described in the documentation, reviewed and edited the documentation which was dictated to the scribe in my presence, and it accurately records my words and actions.
[2020-01-15 14:35] VITALS: BP 141/72
== END 2020-01-15 14:15 | disposition home or self-care (01) ==
LOC: ER 02:29
DX: A04.9 Bacterial intestinal infection, unspecified (principal); K50.90 Crohn's disease, unspecified, without complications; K21.9 Gastro-esophageal reflux disease without esophagitis; R10.84 Generalized abdominal pain; R11.2 Nausea with vomiting, unspecified; R13.10 Dysphagia, unspecified; M54.9 Dorsalgia, unspecified; R05 Cough; J45.909 Unspecified asthma, uncomplicated; Z79.899 Other long term (current) drug therapy; Z87.891 Personal history of nicotine dependence; Z88.6 Allergy status to analgesic agent; Z88.5 Allergy status to narcotic agent; Z88.1 Allergy status to other antibiotic agents
CPT/HCPCS: 99284; 96375; 96365; 36415; 87040; 83605; 83690; 85025; 80053; 81001; 74177; J1170; J2405; A9270; J7030; J7040; J0692

== ENCOUNTER → 2020-02-06 | Outpatient (CLI) | payer MEDICARE ==
[2020-02-06 15:44] LABS: ABSOLUTE BASOPHILS # (AUTO) 0.1 10^3/uL (0.0-0.2); ABSOLUTE EOSINOPHILS # (AUTO) 0.2 10^3/uL (0.0-0.6); ABSOLUTE LYMPHOCYTES (AUTO) 2.2 10^3/uL (0.5-4.7); ABSOLUTE MONOCYTES (AUTO) 0.8 10^3/uL (0.1-1.4); ABSOLUTE NEUT (AUTO) 7.5 10^3/uL (1.7-8.2); BASOPHILS % (AUTO) 0.5 % (0-2); EOSINOPHILS % (AUTO) 1.8 % (0-6); HEMATOCRIT 37.2 % (36.0-47.0); HEMOGLOBIN 12.6 g/dL (12.0-15.5); LYMPHOCYTES % (AUTO) 20.7 % (13-45); MEAN CORPUSCULAR HEMOGLOBIN 28.9 pg (27.0-33.4); MEAN CORPUSCULAR VOLUME 85 fl (80-97); MONOCYTES % (AUTO) 7.5 % (3-13); PLATELET COUNT 257 10^3/uL (150-450); RED BLOOD COUNT 4.38 10^6/uL (3.72-5.28); RED CELL DISTRIBUTION WIDTH 13.7 % (11.5-14.0); SEGMENTED NEUTROPHILS % (AUTO) 69.5 % (42-78); TOTAL CELLS COUNTED % (AUTO) 100 %; WHITE BLOOD COUNT 10.8 10^3/uL (4.0-10.5)
[2020-02-06 16:10] LABS: ALBUMIN 4.2 g/dL (3.5-5.0); ALKALINE PHOSPHATASE 59 U/L (38-126); ANION GAP 12 (5-19); ASPARTATE AMINO TRANSFERASE 23 U/L (14-36); BILIRUBIN,TOTAL 0.7 mg/dL (0.2-1.3); BLOOD UREA NITROGEN 15 mg/dL (7-20); CALCIUM 9.1 mg/dL (8.4-10.2); CARBON DIOXIDE 24 mmol/L (22-30); CHLORIDE 102 mmol/L (98-107); GLUCOSE 129 mg/dL (75-110); POTASSIUM 3.9 mmol/L (3.6-5.0); TOTAL PROTEIN 7.8 g/dL (6.3-8.2)
--- NOTE | 2020-02-06 17:56 | RADIOLOGY REPORT (SQ) ---
EXAM DESCRIPTION: ACUTE ABDOMEN SERIES IMAGES COMPLETED DATE/TIME: 02/06/2020 3:31 pm REASON FOR STUDY: ABD. PAIN K50.00 CROHN'S DISEASE OF SMALL INTESTINE WITHOUT COMPLICATI COMPARISON: None. NUMBER OF VIEWS: Three views. TECHNIQUE: Frontal chest, supine abdomen and upright/decubitus abdomen radiographic images acquired. LIMITATIONS: None. FINDINGS: CHEST: Lungs clear of infiltrates. FREE AIR: None. No abnormal gas collections. BOWEL GAS PATTERN: Nonobstructive pattern. No dilated loops or air fluid levels. CALCIFICATIONS: No suspicious calcifications. HARDWARE: None in the abdomen. SOFT TISSUES: No gross mass or suggestion of organomegaly. BONES: No acute fracture. No worrisome bone lesions. OTHER: No other significant finding. IMPRESSION: NO RADIOGRAPHIC EVIDENCE FOR ACUTE ABDOMINAL DISEASE. TECHNICAL DOCUMENTATION: JOB ID: [id number] 2010 [employer]- All Rights Reserved Reading location - IP/workstation name: [email or web address]
== END ==
LOC: OD 15:02
PROVIDERS: ATTEND Internal Medicine Gastroenterology
DX: K50.00 Crohn's disease of small intestine without complications (principal); R10.84 Generalized abdominal pain
CPT/HCPCS: 36415; 74022; 80053; 85025; 86140